=== PATIENT | female | born 1940 | race Caucasian/White ===

== ENCOUNTER 2023-09-06 11:36 | Emergency (ER) | payer OTHER ==
[2023-09-06 12:25] LABS: Absolute Basophils 0.1 K/uL (0-0.5); Absolute Eosinophils 0.1 K/uL (0-0.5); Absolute Lymphocytes (CBC) 1.8 K/uL (0.7-4.9); Absolute Monocytes 0.4 K/uL (0.1-1.3); Absolute Neutrophil 4.6 K/uL (1.8-8.0); Basophils % 0.9 % (0-1.3); Eosinophils % 0.8 % (0-4.4); Hematocrit 39.1 % (36.0-45.0); Hemoglobin 12.8 g/dL (12.0-15.0); Lymphocytes % 26.4 % (15.3-44.8); MCH 29.1 pg (27.0-35.0); MCHC 32.8 g/dL (32.0-36.0); MCV 88.7 fL (80-100); MPV 8.1 fL (7.6-11.3); Monocytes % 5.5 % (3.3-12.3); Neutrophils % 66.4 % (41.7-73.7); Platelets 192 thou/uL (152-406); RBC Red Blood Cell Count 4.41 M/uL (3.86-4.86); Red Cell Distribution Width 15.2 % (12.1-15.2)
[2023-09-06 12:44] LABS: Troponin High Sensitivity 6.5 pg/mL (<58.9)
--- NOTE | 2023-09-06 13:19 | RAD REPORT ---
EXAM DESCRIPTION: RAD - Chest Single View - 09/06/2023 12:47 pm CLINICAL HISTORY: CHEST PAIN Chest pain. COMPARISON: CHEST SINGLE VIEW dated 06/01/2013; CHEST PA AND LAT 2 VIEW dated 05/31/2013 FINDINGS: Portable technique limits examination quality. The lungs are mildly emphysematous but grossly clear. The heart is normal in size. No displaced fract ures. IMPRESSION: Prominent COPD.
--- NOTE | 2023-09-06 14:57 | ER ---
Nurse's Notes [facility] Name: Laurita Carter Age: 82 yrs Sex: Female : 1940 Arrival Date: 09/06/2023 Time: 11:36 Bed 5 Private MD: Diagnosis: Low back pain;Hyperinflated Lungs Presentation: 09/05 11:44 Chief complaint: Patient states: upper right sided back pain that has been going on for as6 months with it worsening over the last few days. Coronavirus screen: At this time, the client does not indicate any symptoms associated with coronavirus-19. Ebola Screen: No symptoms or risks identified at this time. Initial Sepsis Screen: Does the patient meet any 2 criteria? No. Patient's initial sepsis screen is negative. Does the patient have a suspected source of infection? No. Patient's initial sepsis screen is negative. Risk Assessment: Do you want to hurt yourself or someone else? Patient reports no desire to harm self or others. Onset of symptoms was September 06, 2023. 11:44 Method Of Arrival: Wheelchair as6 11:44 Acuity: ALMITA 3 as6 Triage Assessment: 11:46 General: Appears in no apparent distress. comfortable, Behavior is calm, cooperative. as6 Pain: Complains of pain in back. Historical: - Allergies: 11:46 No Known Allergies; as6 - Home Meds: 11:46 None [Active]; as6 - PMHx: 11:46 None; as6 - PSHx: 11:46 bladder; as6 - Immunization history:: Adult Immunizations up to date. - Infectious Disease History:: Denies. - Social history:: Smoking status: Patient denies any tobacco usage or history of. Screenin:55 [facility] ED Fall Risk Assessment (Adult) History of falling in the last 3 months, rs5 including since admission No falls in past 3 months (0 pts) Confusion or Disorientation No (0 pts) Intoxicated or Sedated No (0 pts) Impaired Gait No (0 pts) Mobility Assist Device Used No (0 pt) Altered Elimination No (0 pt) Score/Fall Risk Level 0 - 2 = Low Risk Oriented to surroundings, Maintained a safe environment. 11:55 Abuse screen: Denies threats or abuse. Nutritional screening: No deficits noted. rs5 Tuberculosis screening: No symptoms or risk factors identified. Assessment: 11:55 General: Appears in no apparent distress. uncomfortable, Behavior is calm, cooperative. rs5 11:55 Pain: Complains of pain in back Pain currently is 6 out of 10 on a pain scale. Quality rs5 of pain is described as aching, Is continuous. Neuro: Level of Consciousness is awake, alert, obeys commands, Oriented to person, place, time, situation. Neuro: Reports dizziness. Cardiovascular: Patient's skin is warm and dry. Rhythm is regular. Respiratory: Reports shortness of breath Airway is patent Respiratory effort is even, unlabored, Respiratory pattern is regular, symmetrical. GI: Abdomen is round non-distended, Abd is soft and non tender X 4 quads. : No signs and/or symptoms were reported regarding the genitourinary system. EENT: No signs and/or symptoms were reported regarding the EENT system. Derm: Skin is intact, Skin is pink, warm \T\ dry. Musculoskeletal: Range of motion: intact in all extremities. 13:05 Reassessment: Patient and/or family updated on plan of care and expected duration. Pain rs5 level reassessed. Patient is alert, oriented x 3, equal unlabored respirations, skin warm/dry/pink. Patient states feeling better. Patient states symptoms have improved. 13:05 Neuro: Denies dizziness. rs5 14:10 Reassessment: No changes from previously documented assessment. rs5 15:08 Reassessment: No changes from previously documented assessment. rs5 Vital Signs: 11:44 BP 171 / 73; Pulse 72; Resp 16 S; Temp 97.8; Pulse Ox 98% on R/A; Weight 52.16 kg (R); as6 Height 5 ft. 4 in. (R); Pain 7/10; 13:40 BP 162 / 71; Pulse 71; Resp 18; Pulse Ox 98% on R/A; rs5 15:08 BP 165 / 74; Pulse 76; Resp 18; Pulse Ox 99% on R/A; rs5 11:44 Body Mass Index 19.74 (52.16 kg, 162.56 cm) as6 11:44 Pain Scale: Adult as6 ED Course: 11:39 Patient arrived in ED. im 11:42 Jarred Colón MD is Attending Physician. ec2 11:46 Triage completed. as6 11:47 Arm band placed on. as6 11:55 Jessy Dunham, RN is Primary Nurse. db 11:55 Patient has correct armband on for positive identification. Placed in gown. Bed in low rs5 position. Call light in reach. Side rails up X2. 11:55 No provider procedures requiring assistance completed. rs5 12:21 Initial lab(s) drawn, by me, sent to lab. EKG done, by ED staff, reviewed by Jarred Colón MD. Inserted saline lock: 22 gauge in right wrist, using aseptic technique. Blood collected. 12:48 XRAY Chest (1 view) In Process Unspecified. EDMS 14:59 IV discontinued, intact, bleeding controlled, No redness/swelling at site. Pressure jg11 dressing applied. 15:10 IV discontinued, intact, bleeding controlled, No redness/swelling at site. Pressure rs5 dressing applied. Administered Medications: No medications were administered Medication: 15:08 VIS not applicable for this client. rs5 Outcome: 14:57 Discharge ordered by . ec2 15:09 Discharged to home ambulatory, with family, rs5 15:09 Condition: stable 15:09 Discharge instructions given to patient, family, Instructed on discharge instructions, follow up and referral plans. Demonstrated understanding of instructions, follow-up care, 15:10 Patient left the ED. rs5 Signatures: Dispatcher [employer] Kenneth Davidson RN RN as6 Jessy Dunham, RN RN db Gordo Crandall RN RN rs5 Jocelyn Schilling Edwin, MD MD ec2 Xiang Shi Corrections: (The following items were deleted from the chart) 15:08 13:05 Reassessment: Patient and/or family updated on plan of care and expected rs5 duration. Pain level reassessed. Patient is alert, oriented x 3, equal unlabored respirations, skin warm/dry/pink. Patient states feeling better. Patient states symptoms have improved. rs5
--- NOTE | 2023-09-06 14:58 | EDPHYS ---
Physician Documentation [facility] Name: Laurita Carter Age: 82 yrs Sex: Female : 1940 Arrival Date: 09/06/2023 Time: 11:36 Bed 5 Private MD: ED Physician Jarred Colón HPI: 09/05 11:57 This 82 yrs old Female presents to ER via Wheelchair with complaints of Back Pain, ec2 Shortness Of Breath, Dizziness. 11:57 Patient arrives today due to concern for back pain as well as lightheadedness. Patient ec2 reports that she was at her primary care doctor's office today and subsequently was told to come to the emergency department to have a cardiac evaluation. Patient reports no chest pain. Does report some lightheadedness, presyncope, no LOC. Patient reports no active pain at this time. Patient reports no history of ACS, previous history of hypertension which has been controlled with weight loss and she has not on medications for this.. Historical: - Allergies: 11:46 No Known Allergies; as6 - Home Meds: 11:46 None [Active]; as6 - PMHx: 11:46 None; as6 - PSHx: 11:46 bladder; as6 - Immunization history:: Adult Immunizations up to date. - Infectious Disease History:: Denies. - Social history:: Smoking status: Patient denies any tobacco usage or history of. ROS: 11:57 Constitutional: as per hpi ec2 Exam: 11:57 Constitutional: GEN: NAD Head: atraumatic Eyes: EOMI Ears: External ears are ec2 normal. CV: regular rate LUNGS: no respiratory distress ABD: non-distended SKIN: no evidence of rashes MSK: no evidence of trauma NEURO: moves all extremities equally Vital Signs: 11:44 BP 171 / 73; Pulse 72; Resp 16 S; Temp 97.8; Pulse Ox 98% on R/A; Weight 52.16 kg (R); as6 Height 5 ft. 4 in. (R); Pain 7/10; 13:40 BP 162 / 71; Pulse 71; Resp 18; Pulse Ox 98% on R/A; rs5 15:08 BP 165 / 74; Pulse 76; Resp 18; Pulse Ox 99% on R/A; rs5 11:44 Body Mass Index 19.74 (52.16 kg, 162.56 cm) as6 11:44 Pain Scale: Adult as6 MDM: 11:56 Patient medically screened. ec2 11:57 Data reviewed: vital signs. ED course: Patient arrives today for evaluation of ec2 lightheadedness as well as back pain. Emanation with well-appearing nontoxic dividual with reassuring vital signs. Will obtain cardiac evaluation. Evaluating for ACS, arrhythmia, electrolyte disturbances, renal dysfunction.. 12:14 ED course: EKG independently reviewed and interpreted by me, shows normal sinus rhythm, ec2 rate of 67, no acute ST segment elevations, intervals are nonconcerning.. 13:06 ED course: Metabolic profile reassuring. CBC is also reassuring, troponin within normal ec2 ranges. BNP within normal ranges. . 13:16 ED course: Chest x-ray independently reviewed and interpreted by me, shows no acute ec2 intrathoracic process. Does show hyperinflated lungs.. 13:37 ED course: On reassessment patient is well-appearing in no acute distress. Will obtain ec2 repeat EKG and troponin.. 14:23 ED course: Repeat EKG independently reviewed and interpreted by me, shows normal sinus ec2 rhythm, rate of 62, no acute ST segment elevations, intervals are nonconcerning, motion artifact appreciated, appears grossly similar to initial EKG. Pending repeat troponin.. 14:56 ED course: Repeat troponin is unremarkable. Will discharge home. Return precautions ec2 given.. 09/05 11:57 Order name: Basic Metabolic Panel; Complete Time: 13:05 ec2 09/05 11:57 Order name: CBC with Diff; Complete Time: 13:05 ec2 09/05 11:57 Order name: NT PRO-BNP; Complete Time: 13:05 ec2 09/05 11:57 Order name: Troponin HS; Complete Time: 13:05 ec2 09/05 13:54 Order name: Troponin High Sensitivity; Complete Time: 14:56 ec2 09/05 11:57 Order name: XRAY Chest (1 view); Complete Time: 13:28 ec2 09/05 11:57 Order name: EKG; Complete Time: 11:57 ec2 09/05 11:57 Order name: Cardiac monitoring; Complete Time: 12:37 ec2 09/05 11:57 Order name: EKG - Nurse/Tech; Complete Time: 12:37 ec2 09/05 11:57 Order name: IV Saline Lock; Complete Time: 12:37 ec2 09/05 11:57 Order name: Labs collected and sent; Complete Time: 12:37 ec2 09/05 11:57 Order name: O2 Per Protocol; Complete Time: 12:37 ec2 09/05 11:57 Order name: O2 Sat Monitoring; Complete Time: 12:37 ec2 09/05 13:54 Order name: EKG - Nurse/Tech; Complete Time: 15:01 ec2 09/05 13:54 Order name: Misc. Order: Repeat EKG/trop; Complete Time: 15:01 ec2 Administered Medications: No medications were administered Disposition Summary: 09/06/23 14:57 Discharge Ordered Notes: Location: Home ec2 Condition: Stable ec2 Diagnosis - Low back pain ec2 - Hyperinflated Lungs ec2 Followup: ec2 - With: Private Physician - When: - Reason: Re-evaluation by your physician Discharge Instructions: - Discharge Summary Sheet ec2 - Pleurisy, [id number] ec2 Forms: - Medication Reconciliation Form ec2 - Antibiotic Education ec2 - Prescription Opioid Use ec2 - Patient Portal Instructions ec2 - Leadership Thank You Letter ec2 Signatures: Dispatcher [employer] Kenneth Davidson RN RN as6 Jarred Colón MD MD ec2 Corrections: (The following items were deleted from the chart) 11:57 11:57 Chest Single View+RAD.RAD.BRZ ordered. CHARLETTE OVALLES
[2023-09-06 15:24] VITALS: BP 165/74; TEMP 97.8; O2SAT 99
--- NOTE | 2023-09-07 14:02 | EKG ---
Test Date: 2023-09-06 Test Time: 12:07:27 Chicken Picker: OFELIA MEASUREMENT RESULTS: Intervals: Rate: 67 WY: 148 QRSD: 84 QT: 392 QTc: 414 [place]: P: 78 W[place]: 148 QRS: 84 T: 81 INTERPRETIVE STATEMENTS: Normal sinus rhythm Septal infarct, age undetermined Abnormal ECG Compared to ECG 09/28/1997 17:18:00 Myocardial infarct finding now present Left ventricular hypertrophy no longer present ST (T wave) deviation no longer present Electronically Signed On 09-07-23 13:58:50 CDT by Bhupinder Coffey
--- NOTE | 2023-09-08 13:09 | EKG ---
Test Date: 2023-09-06 Test Time: 14:13:17 Assistant To The President: OFELIA MEASUREMENT RESULTS: Intervals: Rate: 62 [place]: 152 QRSD: 86 QT: 398 QTc: 403 [place]: P: 73 LA: 152 QRS: 83 T: 82 INTERPRETIVE STATEMENTS: Normal sinus rhythm ST abnormality, possible digitalis effect Abnormal ECG Compared to ECG 09/06/2023 12:07:27 ST (T wave) deviation now present Myocardial infarct finding no longer present Electronically Signed On 09-08-23 13:07:20 CDT by Bhupinder Coffey
== END 2023-09-06 15:10 | disposition home or self-care (01) ==
LOC: ER 11:36
DX: M54.50 Low back pain, unspecified (principal); J98.4 Other disorders of lung
CPT/HCPCS: 36415; 71045; 80048; 83880; 84484; 85025; 93005; 99284

== ENCOUNTER 2023-09-29 08:27 | Emergency (ER) | payer OTHER ==
--- NOTE | 2023-09-29 09:16 | RAD REPORT ---
EXAM DESCRIPTION: RAD - Knee Left 3 View - 09/29/2023 9:09 am CLINICAL HISTORY: fall;Pain COMPARISON: No comparisons FINDINGS: Lucency is seen in the patella likely representing nondisplaced fracture. The bones are de mineralized. Moderate suprapatellar joint effusion.
--- NOTE | 2023-09-29 09:40 | ER ---
Nurse's Notes [facility] Name: Laurita Carter Age: 82 yrs Sex: Female : 1940 Arrival Date: 09/29/2023 Time: 08:27 Bed 12 Private MD: Diagnosis: Fracture of [id number] Presentation: 09/28 08:43 Chief complaint: Patient states: tripped and fell on Wednesday, fell on both knees but the iw left is swollen. 08:44 Coronavirus screen: At this time, the client does not indicate any symptoms associated iw with coronavirus-19. Ebola Screen: Patient negative for fever greater than or equal to 101.5 degrees Fahrenheit, and additional compatible Ebola Virus Disease symptoms Patient denies exposure to infectious person. Patient denies travel to an Ebola-affected area in the 21 days before illness onset. No symptoms or risks identified at this time. Initial Sepsis Screen: Does the patient meet any 2 criteria? No. Patient's initial sepsis screen is negative. Does the patient have a suspected source of infection? No. Patient's initial sepsis screen is negative. Risk Assessment: Do you want to hurt yourself or someone else? Patient reports no desire to harm self or others. Onset of symptoms was September 27, 2023. 08:44 Method Of Arrival: Ambulatory iw 08:44 Acuity: ALMITA 4 iw Historical: - Allergies: 08:46 No Known Allergies; iw - Home Meds: 08:46 None [Active]; iw - PSHx: 08:45 Bladder; iw - Family history:: not pertinent. - Hospitalizations: : No recent hospitalization is reported. Vital Signs: 08:46 BP 134 / 69; Pulse 72; Resp 16; Temp 97.5; Pulse Ox 100% ; Pain 10/10; iw 08:46 Pain Scale: Adult iw ED Course: 08:34 Patient arrived in ED. mg5 08:38 Christ Lovelace MD is Attending Physician. rn 08:45 Triage completed. iw 08:46 Romi Noel, JOSAFAT is Primary Nurse. iw 09:11 XRAY Knee LEFT 3 view In Process Unspecified. EDMS 09:39 Gelacio Kim MD is Referral Physician. rn Administered Medications: No medications were administered Outcome: 09:39 Discharge ordered by . rn 09:50 Patient left the ED. iw Signatures: Dispatcher [employer] EDMS Romi Noel, Christ Galan RN, MD MD rn [place], [place] mg5 Corrections: (The following items were deleted from the chart) 08:46 08:46 Pulse 72bpm; Resp 16bpm; Pulse Ox 100%; Temp 97.5F; Pain 02/09, Adult; iw iw
--- NOTE | 2023-09-29 09:40 | EDPHYS ---
Physician Documentation [facility] Name: Laurita Carter Age: 82 yrs Sex: Female : 1940 Arrival Date: 09/29/2023 Time: 08:27 Bed 12 Private MD: ED Physician Christ Lovelace HPI: 09/28 09:37 This 82 yrs old Female presents to ER via Ambulatory with complaints of Fall Injury, rn Knee Pain. 09:37 Details of fall: The patient fell from an upright position, while standing. Onset: The rn symptoms/episode began/occurred 3 day(s) ago. Associated injuries: The patient sustained Left knee. Severity of symptoms: At their worst the symptoms were moderate, in the emergency department the symptoms have improved. The patient has not experienced similar symptoms in the past. Patient reports tripped, landed on her knees, left knee is still swollen and more painful despite ice and rest.. Historical: - Allergies: 08:46 No Known Allergies; iw - Home Meds: 08:46 None [Active]; iw - PSHx: 08:45 Bladder; iw - Family history:: not pertinent. - Hospitalizations: : No recent hospitalization is reported. ROS: 09:37 Constitutional: Negative for fever, chills, and weight loss, Neck: Negative for injury, rn pain, and swelling, Back: Negative for injury and pain, MS/Extremity: Positive for left knee pain and swelling after fall Exam: 09:37 Constitutional: This is a well developed, well nourished patient who is awake, alert, rn and in no acute distress. MS/ Extremity: Pulses equal, no cyanosis. Neurovascular intact. Mild left knee effusion with mild tenderness to left patella. No open wounds. No crepitus. No signs of infection. Able to flex and extend knee actively and ambulate without assistance. Vital Signs: 08:46 BP 134 / 69; Pulse 72; Resp 16; Temp 97.5; Pulse Ox 100% ; Pain 10/10; iw 08:46 Pain Scale: Adult iw MDM: 08:38 Patient medically screened. rn 09:37 Differential diagnosis: contusion, fracture, sprain, strain. Data reviewed: vital rn signs, nurses notes, radiologic studies, plain films, and as a result, I will discharge patient. Counseling: I had a detailed discussion with the patient and/or guardian regarding the historical points, exam findings, and any diagnostic results supporting the discharge/admit diagnosis, radiology results, the need for outpatient follow up, to return to the emergency department if symptoms worsen or persist or if there are any questions or concerns that arise at home. Special discussion: I discussed with the patient/guardian in detail that at this point there is no indication for admission to the hospital. It is understood, however, that if the symptoms persist or worsen the patient needs to return immediately for re-evaluation. Based on the history and exam findings, there is no indication for further emergent testing or inpatient evaluation. I discussed with the patient/guardian the need to see the orthopedic surgeon for further evaluation of the symptoms. ED course: X-ray knee shows lucency possible nondisplaced fracture of the left patella. Will place in knee immobilizer. Patient has walker that she is using but able to ambulate without assistance as well. Will follow-up with orthopedics as outpatient. I have personally reviewed all of the results, including but not limited to imaging deemed necessary to safely discharge this patient at this time. All results given to and printed out for patient. I personally went over all the results with the patient and answered all questions. Patient will follow-up with PCP and or specialist as discussed. Return precautions given and understood.. 09/28 08:46 Order name: XRAY Knee LEFT 3 view; Complete Time: 09:26 rn 09/28 09:30 Order name: Knee Immobilizer; Complete Time: 09:37 rn Administered Medications: No medications were administered Disposition Summary: 09/29/23 09:39 Discharge Ordered Notes: Location: Home rn Problem: new rn Symptoms: have improved rn Condition: Stable rn Diagnosis - Fracture of patella - non-displaced rn Followup: rn - With: Gelacio Kim MD - When: 5 - 6 days - Reason: Recheck today's complaints, Re-evaluation by your physician Discharge Instructions: - Discharge Summary Sheet rn - How to Use a Knee Immobilizer rn - Patellar Fracture, Adult rn Forms: - Medication Reconciliation Form rn - Antibiotic gallery intern - Prescription Opioid Use rn - Patient Portal Instructions rn - Leadership Thank You Letter rn Signatures: Dispatcher [employer] Romi Yusuf RN RN iw Nieto, Roman, MD MD rn
[2023-09-29 09:57] VITALS: BP 134/69; TEMP 97.5; O2SAT 100
== END 2023-09-29 09:50 | disposition home or self-care (01) ==
LOC: ER 08:27
DX: S82.002A Unspecified fracture of left patella, initial encounter for closed fracture (principal); W18.00XA Striking against unspecified object with subsequent fall, initial encounter
CPT/HCPCS: 99281

== ENCOUNTER 2024-02-21 19:26 | Emergency (ER) | payer OTHER ==
[2024-02-21 20:31] LABS: Specific Gravity 1.011 (1.005-1.030); Sqamous Epithelial None Seen /HPF (None Seen); Urine Bacteria None Seen /HPF (<20); Urine Bilirubin NEGATIVE (Negative); Urine Blood 3+ (OVER) (Negative); Urine Clarity Extremely Turbid (Clear); Urine Color Brown (Yellow); Urine Culture Reflex Order NOT NEEDED; Urine Glucose NEGATIVE (Negative); Urine Ketones NEGATIVE (Negative); Urine Microscopic Reflex YN ORDER UMIC; Urine Nitrite NEGATIVE (Negative); Urine Protein 1+ (Negative); Urine RBC <5 /HPF (None Seen); Urine Urobilinogen Normal (Normal); Urine WBC <5 /HPF (<5)
--- NOTE | 2024-02-21 21:17 | RAD REPORT ---
EXAMINATION: Stone Protocol CLINICAL INDICATION: Abdominal pain. Hematuria TECHNIQUE: CT abdomen and pelvis was performed, without IV contrast, as per department protocol. Oral contrast not given. Axial, sagittal and coronal reconstructions were obtained. One or more of the following dose reduction techniques were used: Automated exposure control, adjustment of the mA and k V according to the patient size, and iterative reconstruction. Unless otherwise specified, incidental findings do not require dedicated imaging follow-up. COMPARISON: No prior exam. FINDINGS: The lack of intravenous and oral contrast limits the sensitivity of this exam for evaluation of solid visceral organs, vascular structures, and bowel Mild tree in bud opacities left lower lobe and lingula. Several small left renal calculi. No hydronephrosis. An extrarenal pelvis present. Ureteral calculus not seen The right kidney is mildly diminished in size. A renal calculus is not seen. Marked dilatation of an extrarenal pelvis is present. A ureteral calculus is not seen. Bladder is distended. A cystocele present. Liver, spleen, pancreas and adrenals grossly normal No evidence of diverticulitis. Moderate amount of stool within the colon. Hysterectomy. No adnexal mass. Cholelithiasis. Gallbladder wall thickening not seen. Spondylosis lumbar spine IMPRESSION: Multiple small nonobstructing left renal calculi. 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 Bladder distention Cholelithiasis
[2024-02-21 21:45] LABS: Absolute Basophils 0.1 K/uL (0-0.5); Absolute Eosinophils 0.1 K/uL (0-0.5); Absolute Monocytes 0.6 K/uL (0.1-1.3); Absolute Neutrophil 5.1 K/uL (1.8-8.0); Eosinophils % 1.7 % (0-4.4); Hematocrit 36.1 % (36.0-45.0); Hemoglobin 12.2 g/dL (12.0-15.0); Lymphocytes % 24.8 % (15.3-44.8); MCH 30.2 pg (27.0-35.0); MCHC 33.8 g/dL (32.0-36.0); MCV 89.6 fL (80-100); Monocytes % 7.9 % (3.3-12.3); Neutrophils % 64.6 % (41.7-73.7); Platelets 173 thou/uL (152-406); RBC Red Blood Cell Count 4.03 M/uL (3.86-4.86); Red Cell Distribution Width 14.7 % (12.1-15.2)
[2024-02-21 22:07] LABS: Albumin 3.4 g/dL (3.4-5.0); Albumin/Globulin Ratio 0.9 (1.1-1.8); Anion Gap 8.3 mEq/L (5.0-15.0); Bilirubin Total 0.3 mg/dL (0.2-1.0); Globulin 3.9 g/dL (2.3-3.5); Protein, Total 7.3 g/dL (6.4-8.2)
[2024-02-21 22:13] LABS: Potassium 4.3 mEq/L (3.5-5.1)
--- NOTE | 2024-02-21 22:30 | ER ---
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 Pt also reports burning cm10 with urination and flank pain. Coronavirus screen: Client denies travel out of the [place] in the last 14 days. Ebola Screen: Patient denies travel to an Ebola-affected area in the 21 days before illness onset. No symptoms or risks identified at this time. Initial Sepsis Screen: Does the patient meet any 2 criteria? No. Patient's initial sepsis screen is negative. Does the patient have a suspected source of infection? No. Patient's initial sepsis screen is negative. Risk Assessment: Do you want to hurt yourself or someone else? Patient reports no desire to harm self or others. Onset of symptoms was February 21, 2024. 20:06 Method Of Arrival: Ambulatory cm10 20:06 Acuity: ALMITA 3 cm10 Triage Assessment: 20:08 General: Appears in no apparent distress. comfortable, Behavior is calm, cooperative, cm10 appropriate for age. Neuro: No deficits noted. Level of Consciousness is awake, alert, obeys commands, Oriented to person, place, time, situation, Appropriate for age. Historical: - Allergies: 20:07 No Known Allergies; cm10 - Home Meds: 20:07 None [Active]; cm10 - PMHx: 20:07 None; cm10 - PSHx: 20:07 Bladder; cm10 - Immunization history:: Adult Immunizations up to date. - Infectious Disease History:: Denies. - Social history:: Smoking status: Patient denies any tobacco usage or history of. Screenin:28 [facility] ED Fall Risk Assessment (Adult) History of falling in the last 3 months, rg5 including since admission No falls in past 3 months (0 pts) Confusion or Disorientation No (0 pts) Intoxicated or Sedated No (0 pts) Impaired Gait No (0 pts) Mobility Assist Device Used No (0 pt) Altered Elimination No (0 pt) Score/Fall Risk Level 0 - 2 = Low Risk Oriented to surroundings, Maintained a safe environment, Hourly rounding (assess needs \T\ fall precautionary measures) done. Abuse screen: Denies threats or abuse. Nutritional screening: No deficits noted. Tuberculosis screening: No symptoms or risk factors identified. Assessment: 20:27 General: Appears in no apparent distress. comfortable, Behavior is calm, cooperative, rg5 appropriate for age. Pain: Denies pain. Neuro: Level of Consciousness is awake, alert, obeys commands, Oriented to person, place, time, situation. Cardiovascular: Patient's skin is warm and dry. Respiratory: Airway is patent Trachea midline Respiratory effort is even, unlabored, Respiratory pattern is regular. GI: Abdomen is flat, Bowel sounds present X 4 quads. Abd is soft and non tender. : Reports burning with urination, vaginal bleeding that is. EENT: No deficits noted. Derm: Skin is intact, Skin is dry, Skin is normal. Musculoskeletal: Circulation, motion, and sensation intact. Range of motion: intact in all extremities. 21:40 Reassessment: No changes from previously documented assessment. Patient and/or family rg5 updated on plan of care and expected duration. Pain level reassessed. Patient is alert, oriented x 3, equal unlabored respirations, skin warm/dry/pink. 22:30 Reassessment: Patient and/or family updated on plan of care and expected duration. Pain rg5 level reassessed. Patient is alert, oriented x 3, equal unlabored respirations, skin warm/dry/pink. Vital Signs: 20:06 BP 176 / 74; Pulse 80; Resp 16; Temp 97.6(IR); Pulse Ox 95% on R/A; Weight 51.26 kg; cm10 Height 5 ft. 4 in. ; Pain 5/10; 20:22 BP 173 / 81; Pulse 78; Resp 17; Pulse Ox 98% ; rg5 21:39 BP 184 / 88; Pulse 81; Resp 17; Pulse Ox 99% on R/A; Pain 0/10; rg5 22:30 BP 154 / 80; Pulse 80; Resp 17; Temp 98; Pulse Ox 99% on R/A; Pain 0/10; rg5 20:06 Body Mass Index 19.40 (51.26 kg, 162.56 cm) cm10 20:06 Pain Scale: Adult cm10 21:39 Pain Scale: Adult rg5 22:30 Pain Scale: Adult rg5 ED Course: 19:29 Patient arrived in ED. jj6 20:00 Ann-Marie Dixon FNP-C is [facility]. kb 20:00 Gerry García MD is Attending Physician. kb 20:07 Triage completed. cm10 20:08 Arm band placed on left wrist. Patient placed in an exam room, on a stretcher. cm10 20:09 Mayo Epps, RN is Primary Nurse. rg5 20:28 Patient has correct armband on for positive identification. Bed in low position. Call rg5 light in reach. Adult w/ patient. 20:28 No provider procedures requiring assistance completed. rg5 20:53 CT Stone Protocol In Process Unspecified. EDMS 22:30 New Gonzales MD is Referral Physician. kb 22:39 IV discontinued, bleeding controlled, No redness/swelling at site. Pressure dressing rg5 applied. 22:40 Provided Education on: POST ER CARE. rg5 Administered Medications: No medications were administered Medication: 21:40 VIS not applicable for this client. rg5 Outcome: 22:30 Discharge ordered by . kb 22:39 Discharged to home ambulatory, rg5 22:39 Condition: stable 22:39 Instructed on discharge instructions, follow up and referral plans. Demonstrated understanding of instructions, 22:40 Patient left the ED. rg5 Signatures: Dispatcher [employer] EDHI Ann-Marie Dixon FNP-C FNP-Ayah Salamanca [email or web address] Sonja Mejía, RN RN cm10 Mayo Epps, RN RN rg5
--- NOTE | 2024-02-21 22:30 | EDPHYS ---
Physician Documentation [facility] Name: Laurita Carter Age: 83 yrs Sex: Female : 1940 Arrival Date: 02/21/2024 Time: 19:26 Bed 15 Private MD: ED Physician Gerry García HPI: 02/20 23:22 This 83 yrs old Female presents to ER via Ambulatory with complaints of HEMATURIA. kb 23:22 Pt is an 83 year old female who presents for dysuria that started this morning and kb hematuria that she noticed this afternoon. Denies fever, abd pain, flank pain. . Historical: - Allergies: 20:07 No Known Allergies; cm10 - Home Meds: 20:07 None [Active]; cm10 - PMHx: 20:07 None; cm10 - PSHx: 20:07 Bladder; cm10 - Immunization history:: Adult Immunizations up to date. - Infectious Disease History:: Denies. - Social history:: Smoking status: Patient denies any tobacco usage or history of. ROS: 23:21 Constitutional: As per HPI kb Exam: 23:21 Constitutional: This is a well developed, well nourished patient who is awake, alert, kb and in no acute distress. Head/Face: Normocephalic, atraumatic. ENT: Moist Mucous membranes Cardiovascular: Regular rate Respiratory: Respirations even and unlabored. No increased work of breathing. Talking in full sentences Abdomen/GI: Soft, non-tender. No distention Skin: Warm, dry with normal turgor. Normal color. MS/ Extremity: Pulses equal, no cyanosis. Neurovascular intact. Full, normal range of motion. Neuro: Awake and alert, GCS 15, oriented to person, place, time, and situation. Vital Signs: 20:06 BP 176 / 74; Pulse 80; Resp 16; Temp 97.6(IR); Pulse Ox 95% on R/A; Weight 51.26 kg; cm10 Height 5 ft. 4 in. ; Pain 5/10; 20:22 BP 173 / 81; Pulse 78; Resp 17; Pulse Ox 98% ; rg5 21:39 BP 184 / 88; Pulse 81; Resp 17; Pulse Ox 99% on R/A; Pain 0/10; rg5 22:30 BP 154 / 80; Pulse 80; Resp 17; Temp 98; Pulse Ox 99% on R/A; Pain 0/10; rg5 20:06 Body Mass Index 19.40 (51.26 kg, 162.56 cm) cm10 20:06 Pain Scale: Adult cm10 21:39 Pain Scale: Adult rg5 22:30 Pain Scale: Adult rg5 MDM: 20:00 Medical Screening Exam initiated kb 23:21 Differential diagnosis: UTI, pyelonephritis, kidney stone. Data reviewed: vital signs, kb nurses notes. Historians other than the Patient: Daughter/Son: daughter. Counseling: I had a detailed discussion with the patient and/or guardian regarding the historical points, exam findings, and any diagnostic results supporting the discharge/admit diagnosis, lab results, radiology results, the need for outpatient follow up, a urologist, to return to the emergency department if symptoms worsen or persist or if there are any questions or concerns that arise at home. ED course: Discussed diagnostic results with pt and daughter. Recommended carias and follow up with urology. Pt and daughter refuse carias. States they will just follow up with urology.. 02/20 20:13 Order name: Urinalysis w/ reflexes; Complete Time: 20:32 kb 02/20 21:19 Order name: CBC with Diff; Complete Time: 21:57 kb 02/20 21:19 Order name: CMP; Complete Time: 22:18 kb 02/20 21:19 Order name: Lipase; Complete Time: 22:18 kb 02/20 20:13 Order name: CT Stone Protocol; Complete Time: 21:18 kb 02/20 21:19 Order name: IV Saline Lock; Complete Time: 21:35 kb 02/20 21:19 Order name: Labs collected and sent; Complete Time: 21:35 kb Administered Medications: No medications were administered Disposition Summary: 02/21/24 22:30 Discharge Ordered Notes: Location: Home kb Condition: Stable kb Diagnosis - 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 kb - Bladder distention kb Followup: kb - With: New Gonzales MD - When: 2 - 3 days - Reason: Recheck today's complaints Followup: kb - With: Emergency Department - When: 2 - 3 days - Reason: Recheck today's complaints, Continuance of care, Re-evaluation by your physician Discharge Instructions: - Discharge Summary Sheet kb - Urethral Stricture kb Forms: - Medication Reconciliation Form kb - Antibiotic Education kb - Prescription Opioid Use kb - Patient Portal Instructions kb - Leadership Thank You Letter kb Signatures: Dispatcher [employer] EDAnn-Marie Bland FNP-Sanjana SINGLETON-Sonja Jackson, RN RN cm10 Corrections: (The following items were deleted from the chart) 20:14 20:14 Urinalysis+U.LAB.BRZ ordered. EDMS EDMS 20:14 20:14 Stone Protocol+CT.RAD.BRZ ordered. EDMS EDMS 21:19 21:19 CBC+H.LAB.BRZ ordered. EDMS EDMS 21:19 21:19 COMPREHENSIVE METABOLIC PANEL+C.LAB.BRZ ordered. EDMS EDMS 21:19 21:19 LIPASE+C.LAB.BRZ ordered. EDMS EDMS 22:28 22:23 Carias ordered. kb kb
[2024-02-22 05:05] VITALS: O2SAT 99
[2024-02-22 05:07] VITALS: BP 154/80; TEMP 98
== END 2024-02-21 22:40 | disposition home or self-care (01) ==
LOC: ER 19:26
DX: N13.5 Crossing vessel and stricture of ureter without hydronephrosis (principal); N32.89 Other specified disorders of bladder
CPT/HCPCS: 36415; 74176; 76377; 80053; 81001; 83690; 85025; 99283

== ENCOUNTER 2024-06-23 08:12 | Inpatient (IN) | payer OTHER ==
[2024-06-23] MEDS ORDERED: NA CHLORIDE 0.9% 1,000 ML ONE (08:32)
[2024-06-23] MEDS ORDERED: ONDANSETRON 4 MG/2 ML VIAL ONE ×2 (09:00→12:13)
[2024-06-23] MEDS ORDERED: FENTANYL CITR 100 MCG/2 ML ONE ×2 (09:00→11:31)
[2024-06-23 09:06] LABS: Absolute Basophils 0.1 K/uL (0-0.5); Absolute Eosinophils 0.1 K/uL (0-0.5); Absolute Lymphocytes (CBC) 1.4 K/uL (0.7-4.9); Absolute Monocytes 0.4 K/uL (0.1-1.3); Absolute Neutrophil 5.2 K/uL (1.8-8.0); Basophils % 0.9 % (0-1.3); Eosinophils % 0.8 % (0-4.4); Hematocrit 39.4 % (36.0-45.0); Hemoglobin 12.9 g/dL (12.0-15.0); Lymphocytes % 19.6 % (15.3-44.8); MCH 29.3 pg (27.0-35.0); MCHC 32.6 g/dL (32.0-36.0); MCV 89.7 fL (80-100); MPV 8.2 fL (7.6-11.3); Monocytes % 5.3 % (3.3-12.3); Neutrophils % 73.4 % (41.7-73.7); Platelets 173 thou/uL (152-406); RBC Red Blood Cell Count 4.39 M/uL (3.86-4.86); Red Cell Distribution Width 14.6 % (12.1-15.2)
[2024-06-23 09:11] LABS: Protime INR 1.05
--- NOTE | 2024-06-23 09:22 | RAD REPORT ---
EXAMINATION: ONE VIEW CHEST XR CLINICAL INDICATION: COUGH TECHNIQUE: Frontal chest projection is submitted. Examination is limited by patient positioning and t echnique. COMPARISON: 09/06/2023 FINDINGS: Emphysematous changes are present. Vague hazy right upper lobe lung opacity suspicious for superimpos ed infiltrate/pneumonia. The heart is upper limit of normal in size. No displaced fractures identified.
--- NOTE | 2024-06-23 09:23 | RAD REPORT ---
EXAMINATION: XR PELVIS CLINICAL INDICATION: PAIN TECHNIQUE: AP Pelvis examination was obtained. COMPARISON: No prior exam. FINDINGS: Subcapital fracture of the proximal right femur seen with varus angulation. No dislocation or additional fracture.
--- NOTE | 2024-06-23 09:24 | RAD REPORT ---
EXAMINATION: XR RIGHT HIP CLINICAL INDICATION: . PAIN RIGHT TECHNIQUE: Multiple views of the right hip were obtained. COMPARISON: No prior exam. FINDINGS: Subcapital fracture of the proximal right femur seen with varus angulation. No dislocation seen.
--- NOTE | 2024-06-23 09:30 | RAD REPORT ---
EXAM: CT brain without contrast HISTORY: DIZZINESS COMPARISON: None TECHNIQUE: Multiple contiguous axial images were obtained and a CT of the brain without contrast. Sag ittal and coronal reformats were performed. One or more of the following dose reduction techniques were used: Automated exposure control, adjust ment of the mA and/or kV according to patient size, and/or iterative reconstruction. FINDINGS: No evidence of hydrocephalus, intracranial hemorrhage, or extra-axial fluid collection. Mild brain atrophy with mild periventricular and deep white matter chronic microvascular ischemic ch anges present. No evidence of midline shift or areas of brain edema. The calvarium is intact. The visualized paranasal sinuses and mastoid air cells are essentially clear . IMPRESSION: No evidence of acute intracranial abnormality. EXAM: CT of the cervical spine without contrast HISTORY: Neck pain, injury DIZZINESS TECHNIQUE: Multiple contiguous axial images were obtained in a CT of the cervical spine without contr ast. Sagittal and coronal reformats were performed. FINDINGS: Mild diffuse pattern of spondylosis is present with disc thinning, posterior osteophyte and mild wedging of vertebral bodies. No evidence of acute fracture or subluxation.. No prevertebral soft tissue swelling is seen. The posterior facets are well aligned. Normal alignment of the skull base with the cervical spine is seen. Chronic opacities in both upper lobes. IMPRESSION: No evidence of acute osseous abnormality of the cervical spine. Moderate cervical degenerative changes.
--- NOTE | 2024-06-23 09:52 | EDPHYS ---
Physician Documentation [facility] Name: Laurita Cooper Age: 83 yrs Sex: Female : 1940 Arrival Date: 06/23/2024 Time: 08:12 Bed 18 Private MD: ED Physician Stefan Ly HPI: 06/23 08:39 This 83 yrs old Female presents to ER via Ambulatory with complaints of Hip rogers Pain. 08:39 The patient or guardian reports decreased range of motion, pain. that occurred at home, rogers sustained from a fall, There is no obvious deformity, The patient is not able to ambulate. Patient is not able to bear weight. The complaints affect the right hip and right upper thigh. Modifying factors: The symptoms are alleviated by nothing, the symptoms are aggravated by nothing. Severity of symptoms: At their worst the symptoms were moderate, in the emergency department the symptoms are unchanged. Historical: - Allergies: 08:26 No Known Allergies; ss - Home Meds: 08:26 None [Active]; ss - PMHx: 08:26 None; ss - PSHx: 08:26 Bladder; ss - Immunization history:: Client reports having NOT received the Covid vaccine. - Infectious Disease History:: Denies. - Social history:: Smoking status: Patient denies any tobacco usage or history of. ROS: 08:41 Constitutional: Negative for fever, chills, and weight loss, Eyes: Negative for injury, rogers pain, redness, and discharge, ENT: Negative for injury, pain, and discharge, Neck: Negative for injury, pain, and swelling, Cardiovascular: Negative for chest pain, palpitations, and edema, Respiratory: Negative for shortness of breath, cough, wheezing, and pleuritic chest pain, Abdomen/GI: Negative for abdominal pain, nausea, vomiting, diarrhea, and constipation, Back: Negative for injury and pain, : Negative for injury, bleeding, discharge, and swelling, Skin: Negative for injury, rash, and discoloration, Psych: Negative for depression, anxiety, suicide ideation, homicidal ideation, and hallucinations, Allergy/Immunology: Negative for hives, rash, and allergies, Endocrine: Negative for neck swelling, polydipsia, polyuria, polyphagia, and marked weight changes, Hematologic/Lymphatic: Negative for swollen nodes, abnormal bleeding, and unusual bruising, 08:41 MS/extremity: Positive for decreased range of motion, laceration, of the right leg, Exam: 08:41 Constitutional: This is a well developed, well nourished patient who is awake, alert, rogers and in no acute distress. Head/Face: Normocephalic, atraumatic. Eyes: Pupils equal round and reactive to light, extra-ocular motions intact. Lids and lashes normal. Conjunctiva and sclera are non-icteric and not injected. Cornea within normal limits. Periorbital areas with no swelling, redness, or edema. ENT: Nares patent. No nasal discharge, no septal abnormalities noted. Tympanic membranes are normal and external auditory canals are clear. Oropharynx with no redness, swelling, or masses, exudates, or evidence of obstruction, uvula midline. Mucous membranes moist. Neck: Trachea midline, no thyromegaly or masses palpated, and no cervical lymphadenopathy. Supple, full range of motion without nuchal rigidity, or vertebral point tenderness. No Meningismus. Chest/axilla: Normal chest wall appearance and motion. Nontender with no deformity. No lesions are appreciated. Cardiovascular: Regular rate and rhythm with a normal S1 and S2. No gallops, murmurs, or rubs. Normal PMI, no JVD. No pulse deficits. Respiratory: Lungs have equal breath sounds bilaterally, clear to auscultation and percussion. No rales, rhonchi or wheezes noted. No increased work of breathing, no retractions or nasal flaring. Abdomen/GI: Soft, non-tender, with normal bowel sounds. No distension or tympany. No guarding or rebound. No evidence of tenderness throughout. Back: No spinal tenderness. No costovertebral tenderness. Full range of motion. Female : Normal external genitalia. Skin: Warm, dry with normal turgor. Normal color with no rashes, no lesions, and no evidence of cellulitis. Neuro: Awake and alert, GCS 15, oriented to person, place, time, and situation. Cranial nerves II-XII grossly intact. Motor strength 5/5 in all extremities. Sensory grossly intact. Cerebellar exam normal. Normal gait. Psych: Awake, alert, with orientation to person, place and time. Behavior, mood, and affect are within normal limits. 08:41 Musculoskeletal/extremity: ROM: limited active range of motion due to pain, limited passive range of motion due to pain, Pulses: are normal with no appreciated deficits, Sensation intact. Compartment Syndrome exam of affected extremity: is normal. 08:41 Neuro: Orientation: is normal, appropriate for stated age, no acute changes, Mentation: is normal, appropriate for stated age, no acute changes, Memory: is normal, appropriate for stated age, no acute changes, Cranial nerves: grossly normal, is grossly normal based on the patient's age, no acute changes, Cerebellar function: is grossly normal, is grossly normal based on the patient's age, no acute changes, Gait: not tested. Deep tendon reflexes are 2+ (normal) in the bilateral brachioradialis, bicep, tricep and patellar and Achilles tendons, seizure activity, is not displayed by the patient, 09:39 ECG was reviewed by the Attending Physician. [facility] Vital Signs: 08:23 BP 200 / 92; Pulse 60; Resp 16; Temp 97.5; Pulse Ox 97% ; Weight 49.9 kg; Height 5 ft. ss 3 in. ; Pain 5/10; 10:00 BP 191 / 92; Pulse 77; Resp 18; Pulse Ox 97% ; me1 11:00 BP 183 / 89; Pulse 81; Resp 17; Pulse Ox 98% ; me1 12:00 BP 194 / 92; Pulse 83; Resp 16; Pulse Ox 98% ; me1 13:00 BP 117 / 91; Pulse 82; Resp 16; Temp 98.2; Pulse Ox 95% on R/A; me1 14:00 BP 169 / 91; Pulse 91; Resp 16; Pulse Ox 94% ; me1 08:23 Body Mass Index 19.49 (49.90 kg, 160.02 cm) 08:23 Pain Scale: Adult ss MDM: 08:27 Medical Screening Exam initiated [facility] 08:42 Differential diagnosis: hip fracture, intertrochanteric fracture, femoral neck rogers fracture, femoral shaft fracture, bursitis, arthritis, strain. Differential diagnosis: cardiac arrhythmia, CVA, generalized weakness, GI bleed, hypovolemia, idiopathic dizziness, near-syncope, , sepsis, TIA, vertigo. Data reviewed: vital signs, nurses notes, EMS record, lab test result(s), EKG, radiologic studies, CT scan, plain films. Consideration of Admission/Observation Patient was admitted/placed on observation. Escalation of care including admission/observation considered. I considered the following discharge prescriptions or medication management in the emergency department Medications were administered in the Emergency Department. See MAR. Independent interpretation of the following test(s) in the Emergency Department EKG: See my EKG interpretation above. Test considered but Not performed: MRI: NO MRI BRAIN. Historians other than the Patient: EMS: EMS WELL IN FORMED. Care significantly affected by the following chronic conditions: Hypertension. Counseling: I had a detailed discussion with the patient and/or guardian regarding the historical points, exam findings, and any diagnostic results supporting the discharge/admit diagnosis, the presence of at least one elevated blood pressure reading (>120/80) during this emergency department visit, lab results, radiology results, the need for further work-up and treatment in the hospital. 06/23 08:28 Order name: Basic Metabolic Panel; Complete Time: 11:56 [facility] 06/23 08:28 Order name: CBC with Diff; Complete Time: 09:49 [facility] 06/23 08:28 Order name: LFT's; Complete Time: 11:56 [facility] 06/23 08:28 Order name: Magnesium; Complete Time: 11:56 [facility] 06/23 08:28 Order name: NT PRO-BNP; Complete Time: 11:56 [facility] 06/23 08:28 Order name: PT-INR; Complete Time: 09:49 [facility] 06/23 08:28 Order name: Troponin HS; Complete Time: 11:56 [facility] 06/23 13:00 Order name: Protime (+INR) [facility] 06/23 13:00 Order name: Comprehensive Metabolic Panel [facility] 06/23 13:00 Order name: Comprehensive Metabolic Panel [facility] 06/23 13:00 Order name: Troponin High Sensitivity [facility] 06/23 13:00 Order name: Troponin High Sensitivity [facility] 06/23 08:28 Order name: XRAY Chest (1 view); Complete Time: 09:49 [facility] 06/23 08:28 Order name: Pelvis XRAY; Complete Time: 09:49 [facility] 06/23 08:28 Order name: Hip Right 2 View XRAY; Complete Time: 09:49 [facility] 06/23 08:39 Order name: CT Head C Spine; Complete Time: 09:49 [facility] 06/23 09:18 Order name: Femur Right Wo Con; Complete Time: 11:56 [facility] 06/23 08:28 Order name: Cardiac monitoring; Complete Time: 09: [facility] 06/23 08:28 Order name: EKG - Nurse/Tech; Complete Time: 09: [facility] 06/23 08:28 Order name: IV Saline Lock; Complete Time: : [facility] 06/23 08:28 Order name: Labs collected and sent; Complete Time: 09: [facility] 06/23 08:28 Order name: O2 Per Protocol; Complete Time: : [facility] 06/23 08:28 Order name: O2 Sat Monitoring; Complete Time: : [facility] 06/23 09:10 Order name: Labs - recollect needed: recollect green top please; Complete Time: 09:50 em1 EC:39 Rate is 73 beats/min. Rhythm is regular. QRS [place] is Normal. [place] interval is normal. QRS rogers interval is normal. QT interval is normal. No Q waves. T waves are Normal. No ST changes noted. Clinical impression: NSR w/ Non-specific ST/T Changes and No evidence of ischemia. Interpreted by me. Reviewed by me. Administered Medications: 08:50 Drug: NS 0.9% IV 500 ml 500 ml IV at 1 bolus once; to be given as a bolus over 30 db minutes Volume: 500 ml; Route: IV; Rate: 1 bolus; Site: left forearm; 13:01 Follow up: Response: No adverse reaction; IV Status: Completed infusion; IV Intake: me1 500ml 08:50 Drug: NS 0.9% IV 500 ml 500 ml IV at 125 ml/hr once Volume: 500 ml; Route: IV; Rate: db 125 ml/hr; Site: left forearm; 14:14 Follow up: Response: No adverse reaction; IV Status: Completed infusion; IV Intake: me1 500ml 09:05 Drug: fentaNYL (PF) IVP 25 mcg IVP once Route: IVP; Site: left forearm; db 13:00 Follow up: Response: No adverse reaction; Pain is decreased me1 09:05 Drug: Ondansetron IVP 4 mg IVP once; over 2 minutes Route: IVP; Site: left forearm; db 13:00 Follow up: Response: No adverse reaction; Nausea is decreased me1 09:40 Drug: fentaNYL (PF) IVP 25 mcg IVP once Route: IVP; Site: left forearm; db 13:01 Follow up: Response: No adverse reaction; Pain is decreased me1 11:40 Drug: fentaNYL (PF) IVP 25 mcg IVP once Route: IVP; Site: left antecubital; hb 13:00 Follow up: Response: No adverse reaction; Pain is unchanged, physician notified me1 12:06 Drug: HYDROmorphone IVP 0.5 mg IVP once Route: IVP; Site: left forearm; hb 13:28 Follow up: Response: No adverse reaction; Pain is decreased me1 12:18 Drug: Ondansetron IVP 4 mg IVP once; over 2 minutes Route: IVP; Site: left forearm; hb 13:00 Follow up: Response: No adverse reaction; Nausea is decreased me1 13:02 Drug: HYDROmorphone IVP 0.5 mg IVP once Route: IVP; Site: left forearm; me1 13:28 Follow up: Response: No adverse reaction; Pain is decreased me1 Disposition Summary: 06/23/24 09:51 Hospitalization Ordered Notes: Hospitalization Status: Inpatient Admission rogers Provider: Luis Armando Granger cha Location: Telemetry/MedSurg (Inpatient) rogers Condition: Stable rogers Problem: new rogers Symptoms: have improved rogers Bed/Room Type: Standard rogers Room Assignment: 404(06/23/24 13:06) ss Diagnosis - Dizziness and giddiness rogers - Displaced fracture of base of neck of left femur rogers - Fall on same level, unspecified rogers Forms: - Medication Reconciliation Form rogers - SBAR form rogers - Leadership Thank You Letter rogers Signatures: Dispatcher [employer] EDIA Stefan Ly MD MD cha Martinez, Eric em1 Angelica Hoffmann RN RN Giuliana Ladd RN RN Jessy Dunham, RN RN Abby Castaneda RN RN me1 Corrections: (The following items were deleted from the chart) 08:29 08:29 Chest Single View+RAD.RAD.BRZ ordered. EDMS EDMS 08:29 08:29 Pelvis+RAD.RAD.BRZ ordered. EDMS EDMS 08:29 08:29 Hip Right 2 View+RAD.RAD.BRZ ordered. EDMS EDMS 13:06 09:51 rogers
--- NOTE | 2024-06-23 09:52 | ER ---
Nurse's Notes [facility] Name: Laurita Cooper Age: 83 yrs Sex: Female : 1940 Arrival Date: 06/23/2024 Time: 08:12 Bed 18 Private MD: Diagnosis: Dizziness and giddiness;Displaced fracture of base of neck of left femur;Fall on same level, unspecified Presentation: 06/23 08:23 Chief complaint: EMS states: dizziness that began this morning. Pt believed dizziness ss subsided, but when she was standing in the closet, she had a dizzy spell and fell onto carpeted floor. C/o R hip pain. Coronavirus screen: Client denies travel out of the [place] in the last 14 days. Ebola Screen: Patient denies exposure to infectious person. Patient denies travel to an Ebola-affected area in the 21 days before illness onset. Initial Sepsis Screen: Does the patient meet any 2 criteria? No. Patient's initial sepsis screen is negative. Does the patient have a suspected source of infection? No. Patient's initial sepsis screen is negative. Risk Assessment: Do you want to hurt yourself or someone else? Patient reports no desire to harm self or others. Onset of symptoms was June 23, 2024. 08:23 Method Of Arrival: Ambulatory ss 08:23 Acuity: ALMITA 2 ss 08:27 Care prior to arrival: IV initiated. 20 GA, in the left wrist. ss Historical: - Allergies: 08:26 No Known Allergies; ss - Home Meds: 08:26 None [Active]; ss - PMHx: 08:26 None; ss - PSHx: 08:26 Bladder; ss - Immunization history:: Client reports having NOT received the Covid vaccine. - Infectious Disease History:: Denies. - Social history:: Smoking status: Patient denies any tobacco usage or history of. Screenin:[facility] ED Fall Risk Assessment (Adult) History of falling in the last 3 months, me1 including since admission Yes- single mechanical fall (1 pt) Confusion or Disorientation No (0 pts) Intoxicated or Sedated No (0 pts) Impaired Gait Yes (1 pt) Mobility Assist Device Used No (0 pt) Altered Elimination No (0 pt) Score/Fall Risk Level 0 - 2 = Low Risk Maintained a safe environment, Provided non-skid footwear, Hourly rounding (assess needs \T\ fall precautionary measures) done. Abuse screen: Denies threats or abuse. Nutritional screening: No deficits noted. Tuberculosis screening: No symptoms or risk factors identified. Assessment: 12:10 General: Appears uncomfortable, slender, well groomed, well developed, Behavior is me1 calm, cooperative, appropriate for age, Reports dizziness that began this morning. Pt believed dizziness subsided, but when she was standing in the closet, she had a dizzy spell and fell onto carpeted floor. C/o R hip pain. Pain: Complains of pain in right leg and right upper thigh and right hip Pain does not radiate. Pain currently is 7 out of 10 on a pain scale. at worst was 10 out of 10 on a pain scale. Quality of pain is described as sharp, spasm Pain began Is continuous. Neuro: Level of Consciousness is awake, alert, obeys commands, Oriented to person, place, time, situation, Appropriate for age. Cardiovascular: Patient's skin is warm and dry. Respiratory: Airway is patent Respiratory effort is even, unlabored, Respiratory pattern is regular, symmetrical. GI: No signs and/or symptoms were reported involving the gastrointestinal system. : No signs and/or symptoms were reported regarding the genitourinary system. EENT: No signs and/or symptoms were reported regarding the EENT system. Derm: Skin is intact, is healthy with good turgor, Skin is pink, warm \T\ dry. Musculoskeletal: Range of motion: limited in right leg and right upper thigh and right hip Reports pain in right leg and right upper thigh and right hip. Injury Description: dizziness that began this morning. Pt believed dizziness subsided, but when she was standing in the closet, she had a dizzy spell and fell onto carpeted floor. C/o R hip pain. Vital Signs: 08:23 BP 200 / 92; Pulse 60; Resp 16; Temp 97.5; Pulse Ox 97% ; Weight 49.9 kg; Height 5 ft. ss 3 in. ; Pain 5/10; 10:00 BP 191 / 92; Pulse 77; Resp 18; Pulse Ox 97% ; me1 11:00 BP 183 / 89; Pulse 81; Resp 17; Pulse Ox 98% ; me1 12:00 BP 194 / 92; Pulse 83; Resp 16; Pulse Ox 98% ; me1 13:00 BP 117 / 91; Pulse 82; Resp 16; Temp 98.2; Pulse Ox 95% on R/A; me1 14:00 BP 169 / 91; Pulse 91; Resp 16; Pulse Ox 94% ; me1 08:23 Body Mass Index 19.49 (49.90 kg, 160.02 cm) ss 08:23 Pain Scale: Adult ss ED Course: 08:21 Patient arrived in ED. em1 08:26 Triage completed. ss 08:26 Arm band placed on right wrist. ss 08:27 Stefan Ly MD is Attending Physician. rogers 08:35 Jessy Dunham, JOSAFAT is Primary Nurse. db 09:05 Jessy Dunham, JOSAFAT is Primary Nurse. db 09:19 XRAY Chest (1 view) In Process Unspecified. EDMS 09:19 Pelvis XRAY In Process Unspecified. EDMS 09:19 Hip Right 2 View XRAY In Process Unspecified. EDMS 09:19 CT Head C Spine In Process Unspecified. EDMS 09:24 Femur Right Wo Con In Process Unspecified. EDMS 09:51 Luis Armando Granger MD is Hospitalizing Provider. rogers 12:10 Patient has correct armband on for positive identification. Bed in low position. Call me1 light in reach. Side rails up X2. Provided Education on: POC. Verbalized understanding. 12:10 Maintain EMS IV. Dressing intact. Good blood return noted. Site clean \T\ dry. Gauge \T\ me 1 site: 20g LFA. 12:10 No provider procedures requiring assistance completed. me1 13:29 Patient admitted, IV remains in place. me1 Administered Medications: 08:50 Drug: NS 0.9% IV 500 ml 500 ml IV at 1 bolus once; to be given as a bolus over 30 db minutes Volume: 500 ml; Route: IV; Rate: 1 bolus; Site: left forearm; 13:01 Follow up: Response: No adverse reaction; IV Status: Completed infusion; IV Intake: me1 500ml 08:50 Drug: NS 0.9% IV 500 ml 500 ml IV at 125 ml/hr once Volume: 500 ml; Route: IV; Rate: db 125 ml/hr; Site: left forearm; 14:14 Follow up: Response: No adverse reaction; IV Status: Completed infusion; IV Intake: me1 500ml 09:05 Drug: fentaNYL (PF) IVP 25 mcg IVP once Route: IVP; Site: left forearm; db 13:00 Follow up: Response: No adverse reaction; Pain is decreased me1 09:05 Drug: Ondansetron IVP 4 mg IVP once; over 2 minutes Route: IVP; Site: left forearm; db 13:00 Follow up: Response: No adverse reaction; Nausea is decreased me1 09:40 Drug: fentaNYL (PF) IVP 25 mcg IVP once Route: IVP; Site: left forearm; db 13:01 Follow up: Response: No adverse reaction; Pain is decreased me1 11:40 Drug: fentaNYL (PF) IVP 25 mcg IVP once Route: IVP; Site: left antecubital; hb 13:00 Follow up: Response: No adverse reaction; Pain is unchanged, physician notified me1 12:06 Drug: HYDROmorphone IVP 0.5 mg IVP once Route: IVP; Site: left forearm; hb 13:28 Follow up: Response: No adverse reaction; Pain is decreased me1 12:18 Drug: Ondansetron IVP 4 mg IVP once; over 2 minutes Route: IVP; Site: left forearm; hb 13:00 Follow up: Response: No adverse reaction; Nausea is decreased me1 13:02 Drug: HYDROmorphone IVP 0.5 mg IVP once Route: IVP; Site: left forearm; me1 13:28 Follow up: Response: No adverse reaction; Pain is decreased me1 Medication: 12:10 VIS not applicable for this client. me1 Intake: 13:01 IV: 500ml; Total: 500ml. me1 14:14 IV: 500ml; Total: 1000ml. me1 Outcome: 09:51 Decision to Hospitalize by Provider. rogers 13:28 Admitted to Tele accompanied by tech, via stretcher, room 404, with chart, Report me1 called to faxed, receipt confirmed by JOSAFAT Dominguez with 4th floor 13:28 Condition: stable 13:28 Instructed on the need for admit, 14:32 Patient left the ED. me1 Signatures: Dispatcher [employer] EDNE Stefan Ly MD MD cha Martinez, Eric em1 Angelica Hoffmann RN RN Giuliana Ladd RN RN Jessy Dunham RN RN db Abby Castaneda RN RN me1 Corrections: (The following items were deleted from the chart) 13:25 08:23 Chief complaint: EMS states: dizziness that began this morning. Pt believed me1 dizziness subsided, but when she was standing in the closet, she had a dizzy spell and fell onto carpeted floor. C/o R hip pain ss
--- NOTE | 2024-06-23 10:13 | RAD REPORT ---
EXAM: CT right femur without contrast CLINICAL INDICATION: pain, fracture. TECHNIQUE: CT of the right femur was performed without contrast. Axial, sagittal, and coronal reconst ructed images. This exam was performed according to our departmental dose-optimization program, which includes automated exposure control, adjustment of the mA and/or kV according to patient size a nd/or use of iterative reconstruction technique. COMPARISON: Recent plain radiographs. FINDINGS: Bones are moderately demineralized. Subcapital fracture seen proximal right femur with varus angulati on. No additional fracture or dislocation seen elsewhere. Small right knee joint effusion with Bergeron's cyst measuring 2.5 cm. No pathologic intrapelvic abnormality. IMPRESSION: Subcapital fracture proximal right femur with varus angulation.
[2024-06-23 10:40] LABS: ALT/SGPT 17 U/L (13-56); AST/SGOT 14 U/L (15-37); Albumin 2.7 g/dL (3.4-5.0); Albumin/Globulin Ratio 0.8 (1.1-1.8); Alkaline Phosphatase 79 U/L (45-117); Anion Gap 8.2 mEq/L (5.0-15.0); BUN Blood Urea Nitrogen 17 mg/dL (7-18); Bicarbonate 23 mEq/L (21-32); Bilirubin Total 0.4 mg/dL (0.2-1.0); Globulin 3.3 g/dL (2.3-3.5); Glomerular Filtration Rate 87 ml/min (=/>90); Glucose Level 84 mg/dL (74-106); Magnesium 1.7 mg/dL (1.6-2.4); NT PRO-BNP 289 pg/mL (<450); Potassium 3.2 mEq/L (3.5-5.1); Sodium Level 142 mEq/L (136-145); Troponin High Sensitivity 14.5 pg/mL (<58.9)
[2024-06-23 10:41] LABS: Bilirubin Direct < 0.2 mg/dL (0-0.2); Bilirubin Indirect, Calculated 0.2 mg/dL (0.2-0.8)
[2024-06-23] MEDS ORDERED: MORPHINE 4 MG/ML SYR ONE (11:26)
[2024-06-23] MEDS ORDERED: HYDROMORPHONE HCL 0.5 MG/0.5 ML INJ ONE ×2 (11:57→12:59)
[2024-06-23] MEDS ORDERED: ACETAMINOPHEN 500 MG TAB PO PRN (12:51)
[2024-06-23] MEDS ORDERED: ALBUTEROL INHALER 200 PUFF/6.7 GM IH PRN (12:58)
--- NOTE | 2024-06-23 13:28 | P.HP ---
Certification for Inpatient Patient will require the following post-hospital care: Home Health Services Practitioner: I am a practitioner with admitting privileges, knowledge of patient current condition, hospital course, and medical plan of care. Services: Services provided to patient in accordance with Admission requirements found in Title 42 Section 412.3 of the Code of Federal Regulations Patient History Date of Service: 06/23/24 Reason for admission: hip fracture History of Present Illness: 83-year-old female with minimal past medical history presenting after a fall at home. She did not lose consciousness. She states she fell dizzy and fell backwards. She denies any recent infection, using any new or recent cito-uhi-hhenxju medications, chest pain, or feeling of passing out. Her daught er and are at bedside. She is relatively functional throughout the day. 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 -: repair of perforated ulcer - Social History Alcohol use: No CD- Drugs: No Caffeine use: Yes Review of Systems General: Unremarkable Eyes: Unremarkable ENT: Unremarkable Respiratory: Unremarkable Cardiovascular: Unremarkable Gastrointestinal: Unremarkable Musculoskeletal: Leg Pain Integumentary: Unremarkable Neurological: Unremarkable Lymphatics: Unremarkable Physical Examination - Physical Exam General: Alert, In no apparent distress HEENT: Atraumatic Respiratory: Clear to auscultation bilaterally Cardiovascular: No edema, Normal pulses Capillary refill: <2 Seconds Gastrointestinal: Normal bowel sounds Musculoskeletal: No contractures Integumentary: No rashes Neurological: Abnormal gait Lymphatics: No axilla or inguinal lymphadenopathy - Studies Laboratory Data (last 24 hrs) 06/23/24 06/23/24 06/23/24 09:52 08:50 08:50 WBC 7.00 Hgb 12.9 Hct 39.4 Plt Count 173 PT 11.0 INR 1.05 Sodium 142 Potassium 3.2 L BUN 17 Creatinine 0.68 Glucose 84 Magnesium 1.7 Total Bilirubin 0.4 AST 14 L ALT 17 Alkaline Phosphatase 79 Assessment and Plan - Plan Subcapital right femur fracture Leg pain Hypertension Orthopedic surgery consulted N.p.o. at midnight Pain control Continue amlodipine Labs reviewed IV fluids EKG within normal limits No history of heart failure, cerebrovascular disease or diabetes RCRI index with 0.5% Patient has a moderate met score within 4-7 and meets functional capacity for age - Advance Directives Does patient have a Living Will: No Does patient have a Durable POA for Healthcare: No
[2024-06-23] MEDS: NA CHLORIDE 0.9% 1,000 ML IV SCH (15:07)
[2024-06-23] MEDS: MORPHINE 2 MG/ML SYR IV PRN ×2 (15:21→19:20)
[2024-06-23] MEDS: LABETALOL 20 MG/4ML SYRINGE IV ONE ×2 (15:59→16:08)
[2024-06-23] MEDS: HYDROCODONE/APAP 5/325 MG TAB PO PRN (16:55)
[2024-06-23] MEDS: methocarbamoL 500 MG TAB PO PRN (19:20)
[2024-06-23] MEDS: HYDROMORPHONE HCL 2 MG/ML inj IV PRN (21:21)
[2024-06-23] MEDS: TRAMADOL HCL 50 MG TAB PO PRN (23:12)
[2024-06-24] MEDS: AMLODIPINE 5 MG TAB PO ONE (00:02)
[2024-06-24] MEDS: HYDRALAZINE HCL 20 MG/ML VIAL IV PRN (04:58)
[2024-06-24] MEDS: HYDROMORPHONE HCL 0.5 MG/0.5 ML INJ IV PRN (04:59)
--- NOTE | 2024-06-24 06:55 | P.PN ---
Date of Service: 06/24/24 Subjective: Seen postop. Resting comfortably on 2 L nasal. She is still pretty drowsy after the surgery Review of Systems General: Unremarkable Eyes: Unremarkable ENT: Unremarkable Respiratory: Unremarkable Cardiovascular: Unremarkable Gastrointestinal: Unremarkable Musculoskeletal: Leg Pain Integumentary: Unremarkable Neurological: Unremarkable Lymphatics: Unremarkable Physical Examination - Physical Exam General: Alert, In no apparent distress HEENT: Atraumatic Respiratory: Clear to auscultation bilaterally Cardiovascular: No edema, Normal pulses Capillary refill: <2 Seconds Gastrointestinal: Normal bowel sounds Musculoskeletal: No contractures. Right hip dressing in place Integumentary: No rashes Neurological: Abnormal gait Lymphatics: No axilla or inguinal lymphadenopathy - Studies Laboratory Data (last 24 hrs) 06/23/24 06/23/24 06/23/24 09:52 08:50 08:50 WBC 7.00 Hgb 12.9 Hct 39.4 Plt Count 173 PT 11.0 INR 1.05 Sodium 142 Potassium 3.2 L BUN 17 Creatinine 0.68 Glucose 84 Magnesium 1.7 Total Bilirubin 0.4 AST 14 L ALT 17 Alkaline Phosphatase 79 Assessment and Plan - Plan Subcapital right femur fracture Leg pain Hypertension s/p right hip hemiarthroplasty Wean O2 as able Pain control Continue amlodipine Labs reviewed EKG within normal limits No history of heart failure, cerebrovascular disease or diabetes DVT prophylaxis with Lovenox Full code - Advance Directives Does patient have a Living Will: No Does patient have a Durable POA for Healthcare: No
[2024-06-24 07:50] LABS: Albumin 3.2 g/dL (3.4-5.0); Albumin/Globulin Ratio 0.8 (1.1-1.8); Anion Gap 10.5 mEq/L (5.0-15.0); Bilirubin Total 0.7 mg/dL (0.2-1.0); Globulin 4.2 g/dL (2.3-3.5); Potassium 4.5 mEq/L (3.5-5.1); Protein, Total 7.4 g/dL (6.4-8.2)
[2024-06-24] MEDS: ONDANSETRON 4 MG/2 ML VIAL IV PRN (07:50)
[2024-06-24] MEDS: ENOXAPARIN 40 MG/0.4 ML SQ SCH (08:32)
[2024-06-24] MEDS: AMLODIPINE 10 MG TAB PO SCH (08:32)
[2024-06-24] MEDS: Ringers Lactate 1,000 ML IV ONE ×3 (08:33→12:39)
[2024-06-24] MEDS: TRANEXAMIC ACID 1,000 MG/10 ML VIAL IV ONE (08:39)
[2024-06-24] MEDS ORDERED: ROCURONIUM 50 MG/5 ML VIAL IV ONE (09:58)
[2024-06-24] MEDS ORDERED: LIDOCAINE 2% MPF 5 ML VIAL ONE (09:58)
[2024-06-24] MEDS ORDERED: FENTANYL CITR 100 MCG/2 ML ONE (09:58)
[2024-06-24] MEDS ORDERED: propofoL 200 MG/20 ML VIAL IV ONE (09:58)
[2024-06-24] MEDS ORDERED: Phenylephrine HCl 10 MG/ML 1 ML VIAL ONE (10:26)
[2024-06-24] MEDS: CEFAZOLIN SODIUM 1 GM/VIAL ONE (10:40)
[2024-06-24] MEDS ORDERED: ONDANSETRON 4 MG/2 ML VIAL ONE (11:01)
[2024-06-24] MEDS ORDERED: dexAMETHasone 4 MG/ML VIAL ONE (11:02)
[2024-06-24] MEDS: SUGAMMADEX SODIUM 200 MG/2 ML VIAL IV ONE (11:18)
--- NOTE | 2024-06-24 11:28 | CON ---
Date of Consultation: 06/23/2024 Reason For Consultation: Right hip pain. History Of Present Illness: Laurita is an 83-year-old female who presented to the ER after sustaining a fall onto her right side with subsequent pain and inability to bear weight. The patient reports having a dizzy spell. X-rays and CAT scan in the ER demonstrated a displaced right subcapital femur fracture. The patient denies any other musculoskeletal complaints at this time. Review of Systems: As above, otherwise negative. Past Medical History: Includes hypertension, history of an ulcer Past Surgical History: Includes repair of perforated ulcer. Home Medications: Albuterol, amlodipine, Zithromax, Levaquin, and prednisone. Allergies: NO KNOWN DRUG ALLERGIES. Social History: Denies tobacco, alcohol, and drug use. Lives at home. Physical Examination: General: No apparent distress. HEENT: Normocephalic, atraumatic. Neck: Supple. Cardiovascular: Brisk cap refill to all digits. Chest: Nonlabored breathing. Abdomen: Nondistended. Psychiatric: Responsive to exam. Musculoskeletal: Bilateral upper extremities functional range of motion with no pain. No gross deformities. No obvious dislocations. Left lower extremity functional range of motion without pain. No gross deformities. No obvious dislocations. Right lower extremity pain with range of motion of the right hip, tenderness to palpation of the right hip. No skin changes or skin breakdown noted. Neurovascularly intact distally. Diagnostic Studies: X-rays and CAT scan demonstrated displaced right subcapital femoral neck fracture. Assessment/plan: Laurita is an 83-year-old female with a right femoral neck fracture. I discussed with the patient and family at length risks and benefits associated with operative and nonoperative treatment measures. Given the displaced nature of her fracture, we proceeded with right hip hemiarthroplasty. Discussed risks and benefits associated with the surgical procedure and they expressed understanding. We will proceed with surgery tomorrow morning. Hospital service will evaluate the patient and will obtain medical clearance prior to surgery. ZELDA/MODL Voice ID: [id number] Report ID: [id number] BRETT
--- NOTE | 2024-06-24 12:26 | P.BOP ---
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
[2024-06-24] MEDS: HYDROMORPHONE HCL 1 MG/ML INJ ONE (13:03)
--- NOTE | 2024-06-24 14:21 | RAD REPORT ---
EXAMINATION: XR Hip Right 2 View CLINICAL INDICATION: Female, 83 years old. [facility] postop TECHNIQUE: 2 view radiograph of the right hip were obtained. COMPARISON: No prior exam. FINDINGS: No evidence of fracture or dislocation. Right hip arthroplasty hardware in satisfactory ali gnment. Postsurgical changes in the surrounding soft tissues. Skin anyi present. Pelvic bony ring is intact. IMPRESSION: Expected findings following right total hip arthroplasty.
[2024-06-24] MEDS: CEFAZOLIN 1 GM in NA CHLORIDE 0.9% 50 ML IVPB SCH (16:11)
[2024-06-25 06:11] LABS: AST/SGOT 21 U/L (15-37); Albumin 2.5 g/dL (3.4-5.0); Albumin/Globulin Ratio 0.7 (1.1-1.8); Alkaline Phosphatase 71 U/L (45-117); BUN Blood Urea Nitrogen 18 mg/dL (7-18); Bicarbonate 26 mEq/L (21-32); Bilirubin Total 0.6 mg/dL (0.2-1.0); Globulin 3.6 g/dL (2.3-3.5); Glomerular Filtration Rate 79 ml/min (=/>90); Glucose Level 111 mg/dL (74-106); Protein, Total 6.1 g/dL (6.4-8.2); Sodium Level 136 mEq/L (136-145)
[2024-06-25 06:12] LABS: ALT/SGPT < 14 U/L (13-56)
[2024-06-25 06:42] LABS: Absolute Lymphocytes (CBC) 1.1 K/uL (0.7-4.9); Basophils % 0.2 % (0-1.3); Eosinophils % 0.1 % (0-4.4); Hematocrit 30.6 % (36.0-45.0); Lymphocytes % 10.1 % (15.3-44.8); MCH 29.5 pg (27.0-35.0); MCHC 32.6 g/dL (32.0-36.0); MCV 90.4 fL (80-100); MPV 8.6 fL (7.6-11.3); Monocytes % 8.6 % (3.3-12.3); Platelets 142 thou/uL (152-406); RBC Red Blood Cell Count 3.38 M/uL (3.86-4.86); Red Cell Distribution Width 14.6 % (12.1-15.2)
[2024-06-25] MEDS: HYDROCODONE/APAP 7.5/325 MG TAB PO PRN (08:49)
[2024-06-25] MEDS: DOCUSATE NA 100 MG CAP PO PRN (11:53)
[2024-06-25] MEDS ORDERED: LABETALOL 20 MG/4ML SYRINGE IV PRN (14:08)
--- NOTE | 2024-06-25 14:09 | P.PN ---
Date of Service: 06/25/24 Subjective: Endorses severe pain. States she is not able to move well. Her is at bedside. Denies any fevers, chills. Mildly elevated blood pressures overnight. Rates the pain as a 9 out of 10 Review of Systems General: Unremarkable Eyes: Unremarkable ENT: Unremarkable Respiratory: Unremarkable Cardiovascular: Unremarkable Gastrointestinal: Unremarkable Musculoskeletal: Leg Pain Integumentary: Unremarkable Neurological: Unremarkable Lymphatics: Unremarkable Physical Examination - Physical Exam General: Alert, In no apparent distress HEENT: Atraumatic Respiratory: Clear to auscultation bilaterally Cardiovascular: No edema, Normal pulses Capillary refill: <2 Seconds Gastrointestinal: Normal bowel sounds Musculoskeletal: No contractures. Right hip dressing in place Integumentary: No rashes Neurological: Abnormal gait Lymphatics: No axilla or inguinal lymphadenopathy - Studies Laboratory Data (last 24 hrs) 06/23/24 06/23/24 06/23/24 09:52 08:50 08:50 WBC 7.00 Hgb 12.9 Hct 39.4 Plt Count 173 PT 11.0 INR 1.05 Sodium 142 Potassium 3.2 L BUN 17 Creatinine 0.68 Glucose 84 Magnesium 1.7 Total Bilirubin 0.4 AST 14 L ALT 17 Alkaline Phosphatase 79 Assessment and Plan - Plan Subcapital right femur fracture Leg pain Hypertension Leukocytosis Anemia Thrombocytopenia s/p right hip hemiarthroplasty Leukocytosis likely secondary to surgery Continue IV Dilaudid Add [place] every 6 as needed Wean O2 as able Continue amlodipine CBC in the a.m. Colace as needed Physical therapy consult DVT prophylaxis with Lovenox Full code - Advance Directives Does patient have a Living Will: No Does patient have a Durable POA for Healthcare: No
--- NOTE | 2024-06-25 17:20 | P.OP ---
Preoperative diagnosis: Right femoral neck fracture Postoperative diagnosis: Same Primary procedure: Right hip hemiarthroplasty Anesthesia: General Estimated blood loss: 100 cc Specimen: Right femoral head Findings: See dictation Operative Technique: Indication For Procedure: Laurita is an 83-year-old female who presented to the ER after sustaining a fall with subsequent pain in the right hip. Imaging demonstrated a displaced right femoral neck fracture. Risks and benefits associated with the procedure were discussed with the patient and her niece at length and they expressed understanding and elected to proceed with operative treatment. Description Of Procedure: After informed consent was obtained, the patient was identified in the preoperative holding area. The right lower extremity was marked. The patient was then brought back to the operative room, transferred tothe operative table in supine fashion and placed under general endotracheal anesthesia. She was then placed in the right lateral decubitus position. The right lower extremity was then prepped and draped in usual sterile fashion. A time-out was initiated. The correct patient and procedure confirmed and identified. The patient did receive preoperative prophylactic antibiotics. Approximately, a 10 cm curvilinear incision was made centered over the greater trochanter consistent with the posterior approach to the right hip. Dissection was then taken down to the tensor fascia cat, which was split in line with the incision. Finally, retractors were placed and blunt dissection was then taken down to the short external rotators, which were tagged using #5 Ethibond. A T-shaped capsulotomy was performed. The femoral head was removed and sized at a 47 mm. A trial head was then placed with good overall fit. Trial was then removed. Next, attention was taken on preparation of the proximal femur. A rongeur was used to remove any fracture fragments as this was a subcapital type fracture. To get exposure, a first cookie cutter was placed followed by canal finder and the lateralizer. The femoral canal was then reamed sequentially from 7 mm to the size 12 mm, followed by broaching and 1 mm increments to a size 12 mm broach. A calcar planer was then used to clean up the calcar. The hip was then reduced and a size 47 x +3 mm neck length was selected with good overall leg length and stability. Trial implants were removed. The hip was then irrigated thoroughly with pulse lavage. A cement bone plug was then placed distally to 160 mm followed by cement was then prepared on the back table using a cement gun and then placed down the femoral canal. After the stent was placed, a size 11 mm Echo Fracture stem was placed with adequate version noted until the cement was hardened. Next, a trial implants were then used to again trial a size 47 mm shell and a +3 mm head and neck length. There was good overall leg length and stability noted. Final implants were placed using a 47 mm acetabular shell and a 28 x +3 mm head. Hip was then again reduced and there was overall stability and leg length noted. Wounds were then irrigated thoroughly with normal saline. Capsule was then approximated using #5 Ethibond, followed by repair of the external rotators, tensor fascia cat was approximated using #1 Vicryl and the deep tissues approximated using an 0 Vicryl. Subcutaneous tissues approximated with 2-0 Vicryl and skin was approximated using anyi. Sterile dressings were applied. Patient was placed in an abduction pillow, awakened and transferred to PACU in stable condition. Postoperative Plan: The patient will be weightbearing as tolerated on the right lower extremity with posterior hip precautions. Physical therapy will be consulted to aid with mobilization. Underwriter Solicitation Director will be consulted to aid with placement. Complications: None Implants: Biomet Becca 11 echo fracture stem, 47 shell, 28 x +3 mm head Fluids & blood products: Per anesthesia record Transferred to: Recovery Room Condition: Good
[2024-06-26 06:24] LABS: Absolute Basophils 0.1 K/uL (0-0.5); Absolute Lymphocytes (CBC) 1.1 K/uL (0.7-4.9); Absolute Monocytes 0.8 K/uL (0.1-1.3); Absolute Neutrophil 7.3 K/uL (1.8-8.0); Basophils % 0.5 % (0-1.3); Eosinophils % 0.4 % (0-4.4); Hematocrit 29.1 % (36.0-45.0); Hemoglobin 9.6 g/dL (12.0-15.0); Lymphocytes % 11.4 % (15.3-44.8); MCH 29.9 pg (27.0-35.0); MCHC 33.1 g/dL (32.0-36.0); MCV 90.4 fL (80-100); MPV 8.1 fL (7.6-11.3); Monocytes % 9.1 % (3.3-12.3); Neutrophils % 78.6 % (41.7-73.7); Platelets 135 thou/uL (152-406); RBC Red Blood Cell Count 3.21 M/uL (3.86-4.86); Red Cell Distribution Width 14.4 % (12.1-15.2)
--- NOTE | 2024-06-26 12:13 | EKG ---
Test Date: 2024-06-23 Test Time: 08:50:51 Sports Medicine Trainer: YUNIOR MEASUREMENT RESULTS: Intervals: Rate: 73 [place]: 144 QRSD: 90 QT: 390 QTc: 429 [place]: P: 71 [place]: 144 QRS: 78 T: 82 INTERPRETIVE STATEMENTS: Normal sinus rhythm Nonspecific ST abnormality Abnormal ECG No previous ECG available for comparison Electronically Signed On 06-26-24 12:11:07 CHIP MACHINE OPERATOR by Hugh Helm
--- NOTE | 2024-06-26 14:47 | P.PN ---
Date of Service: 06/26/24 Subjective: Her pain has improved. Pain is rated at a 5 out of 10 today. Family is at bedside and asking for inpatient rehab. She denies chills, fevers, headache. She is now tolerating a diet. We discussed stopping IV fluids Review of Systems General: Unremarkable Eyes: Unremarkable ENT: Unremarkable Respiratory: Unremarkable Cardiovascular: Unremarkable Gastrointestinal: Unremarkable Musculoskeletal: Leg Pain Integumentary: Unremarkable Neurological: Unremarkable Lymphatics: Unremarkable Physical Examination - Physical Exam General: Alert, In no apparent distress HEENT: Atraumatic Respiratory: Clear to auscultation bilaterally Cardiovascular: No edema, Normal pulses Capillary refill: <2 Seconds Gastrointestinal: Normal bowel sounds Musculoskeletal: No contractures. 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 Colace as needed As needed labetalol for elevated blood pressures DVT prophylaxis with SCDs Full code - Advance Directives Does patient have a Living Will: No Does patient have a Durable POA for Healthcare: No
--- NOTE | 2024-06-27 15:11 | P.PN ---
Date of Service: 06/27/24 Subjective: No new issues. Her is at bedside Review of Systems General: Unremarkable Eyes: Unremarkable ENT: Unremarkable Respiratory: Unremarkable Cardiovascular: Unremarkable Gastrointestinal: Unremarkable Musculoskeletal: Leg Pain Integumentary: Unremarkable Neurological: Unremarkable Lymphatics: Unremarkable Physical Examination - Physical Exam General: Alert, In no apparent distress HEENT: Atraumatic Respiratory: Clear to auscultation bilaterally Cardiovascular: No edema, Normal pulses Capillary refill: <2 Seconds Gastrointestinal: Normal bowel sounds Musculoskeletal: No contractures. 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
--- NOTE | 2024-06-28 15:26 | P.PN ---
Date of Service: 06/28/24 Subjective: Resting comfortably in bed. Some elevated blood pressures overnight. Pain is tolerable. She rates the pain at a 5 out of 10. Review of Systems General: Unremarkable Eyes: Unremarkable ENT: Unremarkable Respiratory: Unremarkable Cardiovascular: Unremarkable Gastrointestinal: Unremarkable Musculoskeletal: Leg Pain Integumentary: Unremarkable Neurological: Unremarkable Lymphatics: Unremarkable Physical Examination - Physical Exam General: Alert, In no apparent distress HEENT: Atraumatic Respiratory: Clear to auscultation bilaterally Cardiovascular: No edema, Normal pulses Capillary refill: <2 Seconds Gastrointestinal: Normal bowel sounds Musculoskeletal: No contractures. 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
[2024-06-29 05:09] VITALS: BMI 22.1
[2024-06-29 08:05] LABS: Absolute Eosinophils 0.1 K/uL (0-0.5); Absolute Lymphocytes (CBC) 0.8 K/uL (0.7-4.9); Absolute Monocytes 0.5 K/uL (0.1-1.3); Absolute Neutrophil 4.7 K/uL (1.8-8.0); Basophils % 0.4 % (0-1.3); Eosinophils % 1.3 % (0-4.4); Hematocrit 30.4 % (36.0-45.0); Hemoglobin 10.3 g/dL (12.0-15.0); Lymphocytes % 13.1 % (15.3-44.8); MCH 30.1 pg (27.0-35.0); MCHC 33.8 g/dL (32.0-36.0); MCV 89.2 fL (80-100); Neutrophils % 77.2 % (41.7-73.7); Nucleated Red Blood Cells % 0.1 % (0-0); Platelets 215 thou/uL (152-406); RBC Red Blood Cell Count 3.41 M/uL (3.86-4.86)
[2024-06-29 08:21] LABS: AST/SGOT 16 U/L (15-37); Albumin 2.4 g/dL (3.4-5.0); Albumin/Globulin Ratio 0.6 (1.1-1.8); Alkaline Phosphatase 80 U/L (45-117); Anion Gap 9.4 mEq/L (5.0-15.0); BUN Blood Urea Nitrogen 15 mg/dL (7-18); Bicarbonate 29 mEq/L (21-32); Bilirubin Total 0.5 mg/dL (0.2-1.0); Globulin 4.1 g/dL (2.3-3.5); Glomerular Filtration Rate 89 ml/min (=/>90); Glucose Level 105 mg/dL (74-106); Potassium 3.4 mEq/L (3.5-5.1); Protein, Total 6.5 g/dL (6.4-8.2); Sodium Level 138 mEq/L (136-145)
[2024-06-29 08:22] LABS: ALT/SGPT < 14 U/L (13-56)
--- NOTE | 2024-06-29 10:02 | P.PN ---
Date of Service: 06/29/24 Subjective: No new complaints. Resting comfortably in bed. Some elevated blood pressures overnight. Denies fevers and chills Review of Systems General: Unremarkable Eyes: Unremarkable ENT: Unremarkable Respiratory: Unremarkable Cardiovascular: Unremarkable Gastrointestinal: Unremarkable Musculoskeletal: Leg Pain Integumentary: Unremarkable Neurological: Unremarkable Lymphatics: Unremarkable Physical Examination - Physical Exam General: Alert, In no apparent distress HEENT: Atraumatic Respiratory: Clear to auscultation bilaterally Cardiovascular: No edema, Normal pulses Capillary refill: <2 Seconds Gastrointestinal: Normal bowel sounds Musculoskeletal: No contractures. Right hip dressing in place Integumentary: No rashes Neurological: Abnormal gait Lymphatics: No axilla or inguinal lymphadenopathy - Studies Laboratory Data (last 24 hrs) 06/23/24 06/23/24 06/23/24 09:52 08:50 08:50 WBC 7.00 Hgb 12.9 Hct 39.4 Plt Count 173 PT 11.0 INR 1.05 Sodium 142 Potassium 3.2 L BUN 17 Creatinine 0.68 Glucose 84 Magnesium 1.7 Total Bilirubin 0.4 AST 14 L ALT 17 Alkaline Phosphatase 79 Assessment and Plan - Plan Subcapital right femur fracture Leg pain Hypertension Anemia Thrombocytopenia Hypokalemia Leukocytosis resolved legal services professional consult for inpatient rehab Appreciate physical therapy recommendation s/p right hip hemiarthroplasty Replace potassium Continue [place] and tramadol as needed Continue amlodipine CBC reviewed [place] as needed As needed labetalol for elevated blood pressures likely due to pain DVT prophylaxis with SCDs Full code - Advance Directives Does patient have a Living Will: No Does patient have a Durable POA for Healthcare: No
[2024-06-29] MEDS: POTASSIUM PHOS IN 0.9 % NACL 15 MMOL/250 ML BAG IV ONE (16:24)
[2024-06-30 07:53] VITALS: BP 133/59
[2024-06-30 08:54] VITALS: TEMP 98
[2024-06-30 09:41] VITALS: O2SAT 97
--- NOTE | 2024-06-30 14:08 | P.DS ---
Admission Date: 06/23/24 Discharge Date: 06/30/24 Disposition: TRANSFER TO INPATIENT REHAB Discharge Condition: GOOD Reason for Admission: hip fracture Brief History of Present Illness: 83-year-old female with minimal past medical history presenting after a fall at home. She did not lose consciousness. She states she fell dizzy and fell backwards. She denies any recent infection, using any new or recent liiq-fly-ebnssgt medications, chest pain, or feeling of passing out. Her daughter and are at bedside. She is relatively functional throughout the day. Otherwise in very good health Hospital Course: 83-year-old female with no significant PMhx , initially presented for fall with right hip pain. CT of the right femur was positive for right subcapital fracture of the right proximal femur. Underwent right hip hemiarthroplasty on 06/24/2024. Postprocedure, was receiving physical therapy. Eventually discharged to inpatient rehab per PT recommendation. Vital Signs/Physical Exam: Temp Pulse Resp BP Pulse Ox 98 F 92 H 18 133/59 L 97 06/30/24 08:00 06/30/24 08:00 06/30/24 08:00 06/30/24 08:00 06/30/24 08:00 General: Alert, Oriented x3 Neck: Supple Respiratory: Clear to auscultation bilaterally Gastrointestinal: Normal bowel sounds Musculoskeletal: No clubbing, No swelling, No erythema Neurological: Normal gait External genitalia: No edema Laboratory Data at Discharge: WBC 6.10 thou/uL (4.3-10.9) 06/29/24 07:46 Hgb 10.3 g/dL (12.0-15.0) L 06/29/24 07:46 Hct 30.4 % (36.0-45.0) L 06/29/24 07:46 Plt Count 215 thou/uL (152-406) 06/29/24 07:46 PT Cancelled 06/23/24 Unknown INR Cancelled 06/23/24 Unknown Sodium 138 mEq/L (136-145) 06/29/24 07:46 Potassium 3.4 mEq/L (3.5-5.1) L 06/29/24 07:46 BUN 15 mg/dL (7-18) 06/29/24 07:46 Creatinine 0.64 mg/dL (0.55-1.02) 06/29/24 07:46 Glucose 105 mg/dL (74-106) 06/29/24 07:46 Magnesium 1.7 mg/dL (1.6-2.4) 06/23/24 09:52 Total Bilirubin 0.5 mg/dL (0.2-1.0) 06/29/24 07:46 AST 16 U/L (15-37) 06/29/24 07:46 ALT < 14 U/L (13-56) 06/29/24 07:46 Alkaline Phosphatase 80 U/L (45-117) 06/29/24 07:46 Home Medications: Albuterol Inhaler [Ventolin Inhaler*] 2 puff IH Q6H PRN #1 hfa.aer.ad 06/01/13 Amlodipine [Norvasc*] 10 mg PO DAILY #30 tab 06/01/13 Acetaminophen [Tylenol] 650 mg PO Q6HP PRN 7 Days 06/30/24 Albuterol Inhaler [Ventolin Inhaler*] 2 puff IH Q6H PRN 06/30/24 Docusate [Colace Cap*] 200 mg PO DAILY PRN cap 06/30/24 Enoxaparin Sodium [Lovenox 40 MG INJ*] 40 mg SQ DAILY syr 06/30/24 Ondansetron [Zofran*] 4 mg IV Q8H PRN vial 06/30/24 New Medications: Acetaminophen [Tylenol] 650 mg PO Q6HP PRN 7 Days PRN Reason: Pain Scale 8-10 (Severe) Followup: NONE,NONE [Primary Care Provider] - Noe Goyal MD [ACTIVE - CAN ADMIT] - 1-2 Weeks
== END 2024-06-30 10:04 | DRG 522 ==
LOC: ER 08:12 → ERHOLD 12:51 → 4TH 13:58
PROVIDERS: ADMIT Family Medicine; ATTEND Internal Medicine
PROC: 0SRR0J9 Replacement of Right Hip Joint, Femoral Surface with Synthetic Substitute, Cemented, Open Approach (ICD-10-PCS; principal; 2024-06-24 09:30)
DX: S72.041A Displaced fracture of base of neck of right femur, initial encounter for closed fracture (principal); D64.9 Anemia, unspecified; D69.6 Thrombocytopenia, unspecified; I10 Essential (primary) hypertension; D72.829 Elevated white blood cell count, unspecified; Z79.52 Long term (current) use of systemic steroids; Z79.899 Other long term (current) drug therapy; Z28.310 Unvaccinated for COVID-19; W18.30XA Fall on same level, unspecified, initial encounter; Y93.9 Activity, unspecified; Y92.019 Unspecified place in single-family (private) house as the place of occurrence of the external cause; Y99.9 Unspecified external cause status
CPT/HCPCS: 36415; 70450; 71045; 72125; 72170; 73700; 80048; 80053; 80076; 82947; 83735; 83880; 84484; 85025; 85610; 88305; 88311; 93005; 94010; 94760; 97116; 97161; 97530; 99285; C1776; J0360; J0690; J1100; J1171; J1650; J2003; J2270; J2371; J2405; J2704; J3010; J7030; J7120

== ENCOUNTER 2024-06-30 08:05 | Inpatient (IN) | payer OTHER ==
[2024-06-30] MEDS ORDERED: DOCUSATE NA 100 MG CAP PO PRN (10:38)
[2024-06-30] MEDS ORDERED: ONDANSETRON 4 MG (ODT) TAB PO PRN (10:39)
[2024-06-30 11:37] VITALS: BMI 19.5
[2024-06-30] MEDS: ACETAMINOPHEN 500 MG TAB PO PRN (12:10)
[2024-06-30] MEDS: BACLOFEN 10 MG TAB PO SCH (12:55)
[2024-06-30] MEDS: APIXABAN 2.5 MG TABLET PO SCH (21:01)
--- NOTE | 2024-07-01 02:03 | HP ---
Date of Admission: 06/30/2024 Time Of Service: 1:30 p.m. Chief Complaint: "I fell and I broke my right hip." History Of Present Illness: Ms. Carter is an 83-year-old patient with hypertension, who had perforate d ulcer, who was at home attempting to get dressed on the 23 of June. When she stood up to pul l up her jeans, got dizzy and fell on the right side. She developed severe pain and was unable to be ar weight. She was brought to the emergency department at [facility], where imaging showed right subcapital femoral neck fracture. She was seen by Orthopedic Service who recommended right hem iarthroplasty. The surgery was performed. Postoperatively, she had anemia, thrombocytopenia, hypoka lemia, leukocytosis. Her electrolyte abnormalities did improve. Leukocytosis had resolved. She did require supplemental oxygen which was weaned. She has constipation requiring stool softener and lax ative. She had DVT prophylaxis with Lovenox. Blood pressure was followed and managed. She did have low hemoglobin, hematocrit, addressed. 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 She was not using assistive device. Currently, she is at standby assistance level for luu sfers, ambulation, and mobilization, dressing upper and lower body. She does require medication on h ip precautions and management of her comorbid conditions. She is now admitted to inpatient rehabilit ation unit to help her return to her prior level of functioning and to reduce risk of rehospitalizati on. Past Medical History: As noted above. Allergies: NO KNOWN DRUG ALLERGIES. Medications: Tylenol 500 mg every 6 hours as needed, Norvasc 10 mg daily, Colace 200 mg daily, baclo fen that was started at 5 mg daily, Lovenox 40 mg daily, Zofran 4 mg every 6 hours as needed, tramado l 50 mg as needed every 6 hours. Laboratory Studies: White blood cell count 6.1, hemoglobin 10.3, hematocrit 30.4, platelets 215. So dium 138, potassium 3.4, glucose 105, BUN 15, creatinine 0.64, calcium 9.5. Family History: Noncontributory. X-ray/imaging: CT scan of the lower extremity on arrival showed a subcapital fracture of the proxima l right femur with valgus angulation. Chest x-ray on 06/23/2024 showed emphysematous changes that ar e present. Vague haze in the right upper lobe lung suspicious for infiltrate versus pneumonia. Hear t upper limit of normal size. Hip x-ray on 06/23 subcapital fracture of the proximal right femur wit h varus angulation. Pelvis x-ray on 06/23 fracture as noted above. Head or cervical spin e CT scan on 06/23, no evidence of acute osseous abnormality of the cervical spine. Moderate cervica l degeneration. Hip x-ray on 06/24, expected postoperative changes after right hip arthroplasty. Gavin alvarado has had a total hip arthroplasty. Review of Systems: She did have some mild spasming in the muscles which have been relieved by the baclofen. Pain also a round 3/10, that is managed as noted above by multiple modalities. Otherwise, no fevers, chills. No nausea, vomiting, and mild myalgias, arthralgias. No rash. No headache. No weight change. No oth er complaints. Current Level Of Functioning: Currently, setup assistance for eating, grooming, moderate assistance for bathing. Contact guard assistance for upper body and lower body dressing along with moderate ass istance for toileting, supervision for wheelchair transfer, bed transfer to toilet and shower transfe rs as well. Distance, she did cover 280 feet with contact guard assistance. Physical Examination: Vital Signs: Blood pressure 139/70, pulse 93, respiratory rate 17, temperature 98.0, oxygen saturati on 94%. Weight 110 pounds, height 5 feet 3 inches, BMI 19.5. General: Ms. Carter is lying in bed, multiple family members at the bedside that is and daugh ter and granddaughter. HEENT: She is normocephalic, atraumatic. Sclerae anicteric. Oropharynx pink and moist. Neck: Supple. Chest: Clear. Heart: Regular. Extremities: No clubbing, cyanosis, or edema. Postoperative changes as expected and the right femor al neck fracture surgical site has good hemostasis. Rehab And Medical Assessment And Plan: Ms. Carter is an 83-year-old patient admitted to the inpatient rehabilitation unit with impairment category 07, fracture of lower extremity. The impairment group code is 08.11, unilateral hip fracture. Etiologic diagnosis, right femoral neck fracture. Comorbidi ties are decreased mobility, decreased physical functioning, pain, DVT risk, constipation, muscle spa sms, hypertension. Plan: She will have physical and occupational therapy, 3 hours a day, 5 of 7 days. She will continu e with tramadol and baclofen for pain and muscle spasms along with Tylenol, Norvasc for hypertension, Colace for constipation. She has Lovenox 40 mg subcutaneously daily for DVT prophylaxis, Zofran for nausea. Comorbidities That Are Impacting Rehabilitation: She did have some muscle spasms. As noted, she has Bactroban for that may, consider switching from Lovenox to Eliquis 2.5 mg twice daily. Blood pressu re require some slight adjustments on hypertensive medications. Rehab Specific Plan: Ms. Carter will have physical and occupational therapy 3 hours a day, 5 of 7 day s, to improve her ability to transfer from bed to chair, to a wheelchair, to a rolling walker, on and off the toilet, in and out of shower. Therapy will help with her dressing upper and lower body, don hoang and doffing footwear. Also, mobilizing household distances at least 250 feet, up and down 10 st eps with bilateral handrails. Ms. Carter has a good understanding of the process of admission to the inpatient rehabilitation unit a nd how she will benefit from physical and occupational therapy. She will have 24 hours a day, 7 days a week skilled rehabilitation and nursing, daily physician evaluation and management, and social ser vices evaluation and management for discharge planning, home equipment, and continuing therapy. If n eed be, additional help will be sought from the Hospitalist Service and Orthopedic Service. Barriers To Discharge: Currently, muscle spasms are mild. She was doing very well prior to coming i nto the hospital. She should do very well and no significant chance that she may have to go to a [facility] nursing facility before going home. Plan will be if she is doing very well, to go home and then to have therapy via outpatient physical therapy. Length Of Stay: Probably about 12 days. Disposition: Expected to be home with family and continue therapy via outpatient therapy. Prognosis: Good. Code Status: Full code. Rehab Specific Goals: 1. Become independent with upper and body dressing, donning and doffing footwear. 2. Independently mobilize wheelchair 250 feet. 3. Independently ambulate with a walker 250 feet. 4. Independently go up and down 10 steps with bilateral handrails. 5. Independent perform all activities of daily living. 6. Independently do all dressing. 7. Independently perform safety awareness and cognitive functioning. The above goals were reviewed with Ms. Carter and she is in agreement. By signing this document, I acknowledge I personally performed a full physical examination on Ms. Fani crandall no later than 24 hours after her admission to the inpatient rehabilitation unit and determined kayden t she is able to tolerate the above course of treatment at an intensive level for reasonable period o f time. A detailed individualized plan of care for her will be completed by hospital day 4 based on the preadmission screen, history and physical, and therapy evaluations. ELIDA Voice ID: [id number]
[2024-07-01 06:03] LABS: Absolute Eosinophils 0.1 K/uL (0-0.5); Absolute Lymphocytes (CBC) 1.1 K/uL (0.7-4.9); Absolute Monocytes 0.6 K/uL (0.1-1.3); Absolute Neutrophil 3.9 K/uL (1.8-8.0); Basophils % 0.8 % (0-1.3); Eosinophils % 1.4 % (0-4.4); Hematocrit 29.3 % (36.0-45.0); Hemoglobin 9.8 g/dL (12.0-15.0); Lymphocytes % 19.8 % (15.3-44.8); MCH 29.7 pg (27.0-35.0); MCHC 33.3 g/dL (32.0-36.0); MCV 89.1 fL (80-100); MPV 7.6 fL (7.6-11.3); Monocytes % 9.8 % (3.3-12.3); Neutrophils % 68.2 % (41.7-73.7); Platelets 287 thou/uL (152-406); RBC Red Blood Cell Count 3.29 M/uL (3.86-4.86); Red Cell Distribution Width 13.9 % (12.1-15.2)
[2024-07-01 06:23] LABS: Albumin 2.5 g/dL (3.4-5.0); Anion Gap 7.6 mEq/L (5.0-15.0); Potassium 3.6 mEq/L (3.5-5.1); Prealbumin 9.8 mg/dL (20-40)
[2024-07-01] MEDS: AMLODIPINE 10 MG TAB PO SCH (07:15)
[2024-07-01] MEDS ORDERED: ENOXAPARIN 40 MG/0.4 ML SQ SCH (08:00)
[2024-07-01] MEDS ORDERED: cloNIDine HCL 0.1 MG TAB PO PRN (18:57)
[2024-07-01] MEDS ORDERED: MAGNESIUM HYDROXIDE 8% 30 ML PO PRN (18:57)
[2024-07-01] MEDS: BACLOFEN 10 MG TAB PO PRN (19:48)
[2024-07-01] MEDS: DOCUSATE NA 100 MG CAP PO SCH (19:49)
[2024-07-01 20:29] LABS: Urine Bacteria <20 /HPF (<20); Urine Bilirubin NEGATIVE (Negative); Urine Blood Trace (Negative); Urine Clarity Extremely Turbid (Clear); Urine Color Light-Yellow (Yellow); Urine Crystals Unidentified Few /HPF (None Seen); Urine Culture Reflex Order REFLEXED; Urine Glucose NEGATIVE (Negative); Urine Ketones NEGATIVE (Negative); Urine Micro Reflex YN NO BILL MICROSCOPIC; Urine Mucus Slight /HPF (None Seen); Urine Nitrite NEGATIVE (Negative); Urine Protein TRACE (Negative); Urine Urobilinogen Normal (Normal); Urine WBC >50 /HPF (<5); Urine Yeast (Budding) Occasional /HPF (None Seen); Urine pH 7.5 (5.0-7.0)
[2024-07-01] MEDS: TRAMADOL HCL 50 MG TAB PO PRN (21:45)
[2024-07-02] MEDS: MAGNESIUM OXIDE 400 MG TAB PO SCH (09:20)
[2024-07-02] MEDS: CRANBERRY FRUIT EXTRACT 425 MG CAPSULE PO SCH (09:21)
[2024-07-03] MEDS: ENSURE HIGH PROTEIN 237 ML CAN PO SCH (19:25)
[2024-07-03] MEDS: DOCUSATE NA/SENNA CONC 1 TAB PO SCH (19:25)
--- NOTE | 2024-07-03 22:49 | PN ---
Date of Progress Note: 07/03/2024 Time Of Service: 1:35 p.m. Subjective: Ms. Carter is sitting in a chair, getting ready to do therapy. She is very enthusiastic, was able to get up and give a hug, and she was very thankful about being in the unit and very hard w orking already. She is denying any significant pain in the right hip, where she has right femoral ne ck fracture, status post surgical repair. Objective: Denies any significant fevers, chills, nausea, vomiting, myalgias, arthralgias, or rash. No other complaints. Physical Examination: Vital Signs: Blood pressure 158/67, pulse of 78, respiratory rate of 16, temperature 98.1, oxygen sa turation 97%. General: Again, Ms. Carter is sitting comfortably now. HEENT: She is normocephalic, atraumatic. Sclerae anicteric. Oropharynx pink and moist. Neck: Supple. Extremities: She does have good hemostasis in the right femoral neck surgical site. Laboratory Studies: White blood cell count 5.7, hemoglobin 9.8, platelets 287. Sodium 138, potassiu m 3.6, chloride 106, carbon dioxide 28, BUN 14, creatinine 0.65, prealbumin 9.8, albumin 2.5, magnesi um 2.0, calcium 9.5, glucose 104. Urinalysis is consistent with urinary tract infection, esterase 25 0, rbc's 5-10, white blood cells greater than 50, occasional budding yeast, trace protein, trace bloo d, pH 7.5, extreme turbidity. Cultures did grow, however, between 10,000 colony-forming un its of mixed erlin and she also has 2+ yeast identified. Progress Made With Physical And Occupational Therapy: Today, with physical therapy, completed multip le laq-zj-nijig transfers with supervision and cuing required for hip precautions. Able to go back u p in her seat. She ambulated 200 feet and 150 feet with contact guard assistance and she was up and down 15 steps with contact guard assistance. With occupational therapy, supervision for csr-xn-ovuzp transfers and shower. Supervision for bathing, upper body dressing, and doing very well. Assessment And Plan: Ms. Carter is an 83-year-old patient in rehabilitation unit with a right femoral neck fracture. She is status post surgical repair. She has decreased mobility, decreased physical functioning, some mild muscle spasms that have improved. She has hypertension, constipation, insomni a, and moderate malnutrition. She will start Ensure High Protein 237 mL twice daily. She will travis nue with physical and occupational therapy. Continue with clonidine for elevated blood pressure, latonya lofen for muscle spasms, cranberry to reduce the risk of urinary tract infection, magnesium for muscl e spasms, tramadol for pain, Zofran for nausea. Continue with therapy 3 hours a day, 5 of 7 days of physical and occupational therapy. CHRISTOPH/SARABJIT Voice ID: [id number] Report ID: [id number]
--- NOTE | 2024-07-04 22:40 | PN ---
Date of Progress Note: 07/04/2024 Time Of Service: 1:40 p.m. Subjective: Ms. Carter is doing very well. Ambulated well around the unit. She denies any new compl aints. No pain at the right hip surgical site, and family is in the room, although last night she di d have some muscle spasms and woke up around 1:30. She will be given Tylenol along with the baclofen 5 mg at night to reduce the spasms. Review of Systems: No complaints right now. No fevers, chills, nausea, vomiting, myalgias, arthralgias. Physical Examination: Vital Signs: Blood pressure 140/65, pulse 82, respiratory rate 17, temperature 97.6, oxygen saturati on 95%. Weight 110 pounds. Height 5 feet 3 inches. General: Ms. Carter again is resting well. She is in no acute distress. HEENT: Normocephalic, atraumatic. Sclerae anicteric. Oropharynx pink and moist. Musculoskeletal: The right hip surgical site has good hemostasis. Laboratory Studies: No new laboratory studies. X-ray/imaging: No new x-rays or imaging. Medications: Medications have been reviewed and remained unchanged. Progress Made With Physical And Occupational Therapy: Today with physical therapy, she did ambulate 750 feet, 555 feet, and 50 feet along with 250 feet independently. She was up and down 20 steps with bilateral handrails independently. She is doing excellent with physical and occupational therapy. With occupational therapy, supervision for bed mobility. She did independent toilet hygiene, doing v annmarie well. Assessment: Ms. Carter is an 83-year-old patient in rehabilitation unit with a right femoral neck fra cture. She is doing excellent in terms of recovery. She still has mild decreased mobility and decre ased physical functioning, but is doing excellent. She does have muscle spasms some at night, and mi ld constipation, and hypertension. Plan: She will continue with physical and occupational therapy. Continue all comorbid condition med ications as needed. She is making great progress and likely it is recommended that she have outpatie nt therapy, but because of the difficulty getting to therapy, will have Home Health and then later go to outpatient therapy. CHRISTOPH/SARABJIT Voice ID: [id number] Report ID: [id number]
--- NOTE | 2024-07-05 18:12 | P.RH.PN ---
Estimated Length of Stay: 9 Expected Discharge Date: 07/07/24 Discharge Disposition Plan: Home Family Support: Yes Receiving Dock Checker Goal: Mobility, Transfers, Self Care Vital Signs: Last Vital Signs Temp 97.7 F 07/05/24 07:49 Pulse 73 07/05/24 08:57 Resp 16 07/05/24 07:49 BP 160/71 H 07/05/24 08:57 Pulse Ox 96 07/05/24 07:49 Laboratory: Laboratory Last Values WBC 5.70 thou/uL (4.3-10.9) 07/01/24 05:33 RBC 3.29 M/uL (3.86-4.86) L 07/01/24 05:33 Hgb 9.8 g/dL (12.0-15.0) L 07/01/24 05:33 Hct 29.3 % (36.0-45.0) L 07/01/24 05:33 MCV 89.1 fL (80-100) 07/01/24 05:33 MCH 29.7 pg (27.0-35.0) 07/01/24 05:33 MCHC 33.3 g/dL (32.0-36.0) 07/01/24 05:33 RDW 13.9 % (12.1-15.2) 07/01/24 05:33 Plt Count 287 thou/uL (152-406) 07/01/24 05:33 MPV 7.6 fL (7.6-11.3) 07/01/24 05:33 Neutrophils % 68.2 % (41.7-73.7) 07/01/24 05:33 Lymphocytes % 19.8 % (15.3-44.8) 07/01/24 05:33 Monocytes % 9.8 % (3.3-12.3) 07/01/24 05:33 Eosinophils % 1.4 % (0-4.4) 07/01/24 05:33 Basophils % 0.8 % (0-1.3) 07/01/24 05:33 Absolute Neutrophils 3.9 K/uL (1.8-8.0) 07/01/24 05:33 Absolute Lymphocytes 1.1 K/uL (0.7-4.9) 07/01/24 05:33 Absolute Monocytes 0.6 K/uL (0.1-1.3) 07/01/24 05:33 Absolute Eosinophils 0.1 K/uL (0-0.5) 07/01/24 05:33 Absolute Basophils 0.0 K/uL (0-0.5) 07/01/24 05:33 Sodium 138 mEq/L (136-145) 07/01/24 05:33 Potassium 3.6 mEq/L (3.5-5.1) 07/01/24 05:33 Chloride 106 mEq/L (98-107) 07/01/24 05:33 Carbon Dioxide 28 mEq/L (21-32) 07/01/24 05:33 Anion Gap 7.6 mEq/L (5.0-15.0) 07/01/24 05:33 BUN 14 mg/dL (7-18) 07/01/24 05:33 Creatinine 0.65 mg/dL (0.55-1.02) 07/01/24 05:33 Est GFR (CKD-EPI) 88 ml/min (=/>90) L 07/01/24 05:33 Glucose 104 mg/dL (74-106) 07/01/24 05:33 Calcium 9.5 mg/dL (8.5-10.1) 07/01/24 05:33 Magnesium 2.0 mg/dL (1.6-2.4) 07/01/24 05:33 Albumin 2.5 g/dL (3.4-5.0) L 07/01/24 05:33 Prealbumin 9.8 mg/dL (20-40) L 07/01/24 05:33 Urine Color Light-yellow (Yellow) 07/01/24 20:10 Urine Clarity Extremely turbid (Clear) H 07/01/24 20:10 Urine pH 7.5 (5.0-7.0) H 07/01/24 20:10 Ur Specific [place] 1.010 (1.005-1.030) 07/01/24 20:10 Glucose (UA)(Auto) Negative (Negative) 07/01/24 20:10 Urine Ketones Negative (Negative) 07/01/24 20:10 Urine Blood Trace (Negative) H 07/01/24 20:10 Urine Nitrite Negative (Negative) 07/01/24 20:10 Urine Bilirubin Negative (Negative) 07/01/24 20:10 Urine Urobilinogen Normal (Normal) 07/01/24 20:10 Ur Leukocyte Esterase 250 Isabel/uL (Negative) H 07/01/24 20:10 Urine RBC 5-10 /HPF (None Seen) H 07/01/24 20:10 Urine WBC >50 /HPF (<5) H 07/01/24 20:10 Ur Squamous Epith Cells 5-10 /HPF (None Seen) 07/01/24 20:10 U Non-Squamous Epi Cells <5 /HPF (None Seen) 07/01/24 20:10 Unidentified Crystals Few /HPF (None Seen) 07/01/24 20:10 Urine Bacteria <20 /HPF (<20) 07/01/24 20:10 Urine Mucus Slight /HPF (None Seen) 07/01/24 20:10 Urine Yeast (Budding) Occasional /HPF (None Seen) H 07/01/24 20:10 Urine Culture Reflexed Reflexed 07/01/24 20:10 Urine Total Protein Trace (Negative) H 07/01/24 20:10 Weight: 110 lb Wound Present: No Closed Surgical Incision Present: Yes Physician Update: Her labs were reviewed and are stable. She has made excellent progress with physical and occupational therapy. She is independent ambulating 750' with a rolling walker, and mobilized a wheelchair 250' independently. She is up and down 15 steps independently. Her upper and lower body dressing is independent. Her ADLs are independent. She will be discharged home with outpatient physical therapy and follow up with orthopedic surgeon after discharge. Summary: Patient's care plan and frame repairer goals have been reviewed and revised as necessary. Please see the Rehabilitation Signature page for all necessary signatures.
--- NOTE | 2024-07-06 00:36 | PN ---
Date of Progress Note: 07/05/2024 Time Of Service: 1:35 p.m. Subjective: Ms. Carter is doing excellent. She is ambulating well around the unit. Denies any pain. She is very happy with therapy, soon to be discharged. Objective: Denies any fevers, chills, nausea, vomiting, myalgias, arthralgias. The right hip fractu re site shows no significant pain. Physical Examination: Vital Signs: Blood pressure 140/65, pulse 85, respiratory rate 18, temperature 98, oxygen saturation 98 as well. General: Ms. Carter is very happy, smiling. Ambulated around the unit. HEENT: She is normocephalic , atraumatic. Sclerae anicteric. Oropharynx pink and moist. Neck: Supple. Chest: Clear. Extremities: She has no significant edema, clubbing, or cyanosis in the right lower extremity, where she has the right femoral neck fracture. Laboratory Studies: No new laboratory studies. X-ray/imaging: No new x-rays or imaging. Medications: Have been reviewed and are unchanged. Progress Made With Physical And Occupational Therapy: Today, with physical therapy, she ambulated 75 0 feet twice, 550 feet once, and 125 feet with independence. She used a Rollator 500 feet independently, up and do wn 25 steps with bilateral handrails also independently. Byi-gq-kpzca transfers done independently. She did in an excellent manner with occupational therapy as well, independent with bed mobility, amb ulated from room to shower. Completed bathing, upper and lower body dressing, footwear, all independ ently. Toilet hygiene, all independently. Assessment And Plan: Ms. Carter is an 83-year-old patient who did excellent with physical and occupat ional therapy, all independent with all activities. She is ready to go home and she will have outpat ient physical therapy to continue her great progress. She still has mild risk of deep venous thrombo sis. She has hypertension, constipation, and some insomnia. In terms of her plan, continue again with physical and occupational therapy, and then continue with c omorbid condition medications. Discharge and follow up with outpatient physical therapy. CHRISTOPH/SARABJIT Voice ID: [id number] Report ID: [id number]
[2024-07-06 06:36] LABS: Absolute Basophils 0.1 K/uL (0-0.5); Absolute Eosinophils 0.2 K/uL (0-0.5); Absolute Lymphocytes (CBC) 2.3 K/uL (0.7-4.9); Absolute Monocytes 0.5 K/uL (0.1-1.3); Absolute Neutrophil 3.3 K/uL (1.8-8.0); Basophils % 1.3 % (0-1.3); Eosinophils % 2.4 % (0-4.4); Hematocrit 30.8 % (36.0-45.0); Hemoglobin 10.3 g/dL (12.0-15.0); Lymphocytes % 36.2 % (15.3-44.8); MCH 29.4 pg (27.0-35.0); MCHC 33.4 g/dL (32.0-36.0); MCV 87.9 fL (80-100); MPV 7.4 fL (7.6-11.3); Monocytes % 8.4 % (3.3-12.3); Neutrophils % 51.7 % (41.7-73.7); Platelets 400 thou/uL (152-406); Red Cell Distribution Width 13.8 % (12.1-15.2)
[2024-07-06 06:40] VITALS: BP 148/76; TEMP 97.2
[2024-07-06 07:11] LABS: Albumin 2.6 g/dL (3.4-5.0); Anion Gap 7.5 mEq/L (5.0-15.0); Magnesium 2.2 mg/dL (1.6-2.4); Potassium 3.5 mEq/L (3.5-5.1); Prealbumin 13.2 mg/dL (20-40)
[2024-07-06 08:23] LABS: Blood Morphology Comment NOT SEEN (NOT SEEN); Platelet Estimate ADEQ; Platelets Clumped FEW; White Blood Cell Scan OK (OK)
== END 2024-07-06 10:20 | disposition home or self-care (01) | DRG 561 ==
LOC: 5TH 09:25
PROVIDERS: ADMIT Psychiatry & Neurology Neurology with Special Qualifications in Child Neurology; ATTEND Psychiatry & Neurology Neurology with Special Qualifications in Child Neurology
DX: S72.001D Fracture of unspecified part of neck of right femur, subsequent encounter for closed fracture with routine healing (principal); K59.00 Constipation, unspecified; M62.838 Other muscle spasm; I10 Essential (primary) hypertension; R11.0 Nausea
CPT/HCPCS: 36415; 80048; 81001; 82040; 83735; 84134; 85025; 87086; 87088; 97110; 97116; 97163; 97165; 97530; 97542

== ENCOUNTER 2024-12-14 18:22 | Inpatient (IN) | payer OTHER ==
[2024-12-14] MEDS ORDERED: NA CHLORIDE 0.9% 1,000 ML ONE (19:05)
--- NOTE | 2024-12-14 19:06 | RAD REPORT ---
EXAMINATION: ONE VIEW CHEST XR CLINICAL INDICATION: FEVER TECHNIQUE: Frontal chest projection is submitted. Examination is limited by patient positioning and t echnique. COMPARISON: 11/25/2024 FINDINGS: Bilateral interstitial prominence is seen which may be related to chronic bronchitis or COPD. No foca l infiltrate typical of pneumonia. The heart is upper limit of normal in size. No displaced fractures identified. Mildly tortuous thoracic aorta.
[2024-12-14 19:18] LABS: Influenza A Ag Negative; Influenza B Ag Negative; SARS-CoV-2 Antigen Rapid Res Negative (Negative)
[2024-12-14] MEDS ORDERED: CEFTRIAXONE 1000 MG/VIAL ONE (19:24)
[2024-12-14] MEDS ORDERED: NA CHLORIDE 0.9% 500 ML ONE (19:25)
[2024-12-14] MEDS ORDERED: IBUPROFEN 400 MG TAB ONE (19:25)
[2024-12-14 19:26] LABS: Sqamous Epithelial None Seen /HPF (None Seen); Urine Microscopic Reflex YN NO UMIC; Urine WBC Clump Many /HPF (None Seen)
[2024-12-14 19:29] LABS: Absolute Lymphocytes (CBC) 0.2 K/uL (0.7-4.9); Hematocrit 34.5 % (36.0-45.0); Hemoglobin 11.5 g/dL (12.0-15.0); MCH 27.9 pg (27.0-35.0); MCHC 33.4 g/dL (32.0-36.0); MCV 83.7 fL (80-100); MPV 8.0 fL (7.6-11.3); Nucleated RBC Absolute Count 0.0 (0-0); Nucleated Red Blood Cells % 0.0 % (0-0); RBC Red Blood Cell Count 4.12 M/uL (3.86-4.86); White Blood Count 6.00 thou/uL (4.3-10.9)
[2024-12-14 19:33] LABS: Urine Culture Reflex Order REFLEXED
[2024-12-14 19:38] LABS: PT Prothrombin Time 13.3 SECONDS (10-13.0); PTT, Activated Partial Thromb 27.1 SECONDS (27.2-37.4); Protime INR 1.18
[2024-12-14 19:52] LABS: ALT/SGPT 15.0 U/L (13-56); AST/SGOT 15.0 U/L (15-37); Albumin 3.5 g/dL (3.4-5.0); Albumin/Globulin Ratio 0.9 (1.1-1.8); Alkaline Phosphatase 83.0 U/L (45-117); Anion Gap 10.7 mEq/L (5.0-15.0); BUN Blood Urea Nitrogen 17.0 mg/dL (7-18); Globulin 4.1 g/dL (2.3-3.5); Glucose Level 106.0 mg/dL (74-106); NT PRO-BNP 942.0 pg/mL (<450); Potassium 3.7 mEq/L (3.5-5.1); Troponin High Sensitivity 16.2 pg/mL (<58.9)
--- NOTE | 2024-12-14 20:03 | ER ---
Nurse's Notes [facility] Name: Laurita Cooper Age: 83 yrs Sex: Female : 1940 Arrival Date: 12/14/2024 Time: 18:22 Bed 23 Private MD: Diagnosis: UTI/ Urinary tract infection, site not specified;Fever, unspecified;Acute bronchitis, unspecified Presentation: 12/14 18:22 Chief complaint: Pt's states "she just started getting shaky and getting aa5 nauseated". Pt noted to be shaking uncontrollably during triage. 18:22 Acuity: ALMITA 2 aa5 18:22 Onset of symptoms was December 14, 2024. aa5 18:22 Coronavirus screen: chills. Ebola Screen: Patient denies travel to an Ebola-affected [facility] area in the 21 days before illness onset. Initial Sepsis Screen: Does the patient meet any 2 criteria? RR > 20 per min. Temp <36.0*C (96.8*F)) or > 38.3*C (100.9*F). HR > 90 bpm. Does the patient have a suspected source of infection?. Risk Assessment: Do you want to hurt yourself or someone else? Patient reports no desire to harm self or others. 18:22 Method Of Arrival: Wheelchair aa5 Historical: - Allergies: 18:26 No Known Allergies; aa5 - PMHx: 18:26 Hypertensive disorder; urinary retention (Unknown); aa5 - PSHx: 18:26 Bladder; aa5 - Immunization history:: Adult Immunizations up to date. - Infectious Disease History:: Denies. - Social history:: Smoking status: Reported history of juuling and/or vaping. Screenin:35 [facility] ED Fall Risk Assessment (Adult) History of falling in the last 3 months, db including since admission No falls in past 3 months (0 pts) Confusion or Disorientation No (0 pts) Intoxicated or Sedated No (0 pts) Impaired Gait No (0 pts) Mobility Assist Device Used No (0 pt) Altered Elimination Yes (1 pt) Score/Fall Risk Level 0 - 2 = Low Risk Oriented to surroundings, Maintained a safe environment. Abuse screen: Denies threats or abuse. Denies injuries from another. Nutritional screening: No deficits noted. Tuberculosis screening: No symptoms or risk factors identified. 20:09 [facility] ED Fall Risk Assessment (Adult) History of falling in the last 3 months, tb4 including since admission No falls in past 3 months (0 pts) Confusion or Disorientation No (0 pts) Intoxicated or Sedated No (0 pts) Impaired Gait No (0 pts) Mobility Assist Device Used No (0 pt) Altered Elimination Yes (1 pt) Score/Fall Risk Level 0 - 2 = Low Risk Oriented to surroundings, Maintained a safe environment. Abuse screen: Denies threats or abuse. Denies injuries from another. Nutritional screening: No deficits noted. Tuberculosis screening: No symptoms or risk factors identified. Assessment: 18:35 Reassessment: Patient appears in no apparent distress at this time. Patient and/or db family updated on plan of care and expected duration. Pain level reassessed. Patient is alert, oriented x 3, equal unlabored respirations, skin warm/dry/pink. General: Appears in no apparent distress. comfortable, Behavior is calm, cooperative. Neuro: Level of Consciousness is awake, alert, obeys commands, Oriented to person, place, time, situation. 20:02 Reassessment: Patient in bed no s/s of distress noted, denies pain 0/10, at tb4 bedside Patient denies pain at this time. Patient states feeling better. General: Appears in no apparent distress. comfortable, Behavior is calm, cooperative. Pain: Denies pain. Neuro: No deficits noted. Level of Consciousness is awake, alert, obeys commands, Oriented to person, place, time, situation. Respiratory: No deficits noted. Airway is patent Trachea midline Respiratory effort is even, unlabored, Respiratory pattern is regular, symmetrical. GI: No signs and/or symptoms were reported involving the gastrointestinal system. : Carias in place 16 [place] carias Reports inability to void, has to cath herself every night. EENT: No deficits noted. No signs and/or symptoms were reported regarding the EENT system. Derm: No signs and/or symptoms reported regarding the dermatologic system. Skin is intact. Vital Signs: 18:22 BP 172 / 117; Pulse 128; Resp 30 S; Temp 103.6(O); Pulse Ox 97% on R/A; aa5 18:43 Weight 49.9 kg; Height 5 ft. 3 in. ; db 19:00 BP 164 / 85; Pulse 106; Resp 28; Pulse Ox 95% ; db 20:02 BP 157 / 79; Pulse 99; Resp 18; Temp 97.6; Pulse Ox 100% on R/A; Weight 49.9 kg; Height tb4 5 ft. 3 in. ; Pain 0/10; 21:00 BP 146 / 89; Pulse 76; Resp 17; Pulse Ox 99% on R/A; Pain 0/10; tb4 22:08 BP 152 / 90; Pulse 19; Resp 18; Pulse Ox 100% on R/A; Pain 0/10; tb4 23:00 BP 134 / 72; Pulse 88; Resp 19; Temp 97.6(O); Pulse Ox 100% on R/A; Pain 0/10; tb4 20:02 Body Mass Index 19.49 (49.90 kg, 160.02 cm) tb4 20:02 Pain Scale: Adult tb4 21:00 Pain Scale: Adult tb4 22:08 Pain Scale: Adult tb4 23:00 Pain Scale: Adult tb4 ED Course: 18:22 Arm band placed on Patient placed in an exam room, on a stretcher. aa5 18:25 Patient arrived in ED. db 18:27 Triage completed. aa5 18:33 Ganesh Coombs FNP-C is PHCP. dr5 18:33 Tien Mckoy DO is Attending Physician. dr5 18:35 Patient has correct armband on for positive identification. Bed in low position. Call db light in reach. Side rails up X2. Client placed on continuous cardiac and pulse oximetry monitoring. NIBP monitoring applied. 4th grade teacher on. Pulse ox on. NIBP on. Warm blanket given. Pillow given. 18:42 Jessy Dunham, RN is Primary Nurse. db 18:45 Urine collected: Carias catheter specimen, cloudy, EKG done. Carias cath inserted, using db sterile technique, 16 Fr., by ED staff, balloon inflated, urine specimen collected. Patient tolerated well. 18:55 Chest Single View XRAY In Process Unspecified. EDMS 18:58 COVID-19 Ag + Flu A+B Ag Sent. dr5 18:58 UA Rfx Venkata Cult if indicated Sent. dr5 19:00 Initial lab(s) drawn, by me, sent to lab. First set of blood cultures drawn. Missed db attempt(s): 20 gauge in left forearm. Bleeding controlled, band aid applied, catheter tip intact. 19:13 Lab(s) recollected, by me, sent to lab. Second set of blood cultures drawn by me. db Inserted saline lock: 20 gauge in right antecubital area, using aseptic technique. Blood collected. Flushed with 10 mL NS. 20:02 Shahid Lemus, RN is Hospitalizing Provider. dr5 Administered Medications: 19:43 Drug: Rocephin IV 1 grams IV at per protocol once; Given slow IV push per pharmacy tb4 instructions Route: IV; Rate: per protocol; Site: right antecubital; 21:29 Follow up: Response: No adverse reaction; IV Status: Completed infusion tb4 19:44 Drug: Ibuprofen PO 800 mg PO once Route: PO; tb4 21:29 Follow up: Urine output 1000 ml; Response: No adverse reaction; Temperature is decreasedtb4 19:44 Drug: NS 0.9% IV (30 ml/kg) 30 ml/kg IV at bolus once; Sepsis Protocol; to be given as tb4 a bolus over 90 minutes Route: IV; Rate: bolus; Site: right antecubital; 23:13 Follow up: Response: No adverse reaction; IV Status: Completed infusion tb4 Medication: 20:02 VIS not applicable for this client. tb4 Output: 21:29 Urine: 1000ml; Total: 1000ml. tb4 Outcome: 20:03 Decision to Hospitalize by Provider. dr5 23:14 Patient left the ED. tb4 Signatures: Dispatcher [employer] EDGA Radha Henning RN RN aa5 Jessy Dunham RN RN Ganesh Nguyen, FINISH MOLDER-C FINISH MOLDER-[facility]5 Jyoti Winkler RN RN tb4
--- NOTE | 2024-12-14 20:03 | EDPHYS ---
Physician Documentation [facility] Name: Laurita Cooper Age: 83 yrs Sex: Female : 1940 Arrival Date: 12/14/2024 Time: 18:22 Bed 23 Private MD: ED Physician Tien Mckoy HPI: 12/14 18:59 This 83 yrs old Female presents to ER via Wheelchair with complaints of Fever.dr5 18:59 The patient reports fever. Onset: The symptoms/episode began/occurred acutely. Patient dr5 is an 83-year-old female with history of hypertension and urinary retention coming in with fever that started today. at bedside reports that they were out shopping today without any issues. Patient came in by triage with temperature of 103.6. Immediately ordered septic workup. I put in Cummings. Urine returned cloudy concerning for urinary tract infection. Will obtain blood cultures and urine and give IV antibiotics and fluids.. Historical: - Allergies: 18:26 No Known Allergies; aa5 - PMHx: 18:26 Hypertensive disorder; urinary retention (Unknown); aa5 - PSHx: 18:26 Bladder; aa5 - Immunization history:: Adult Immunizations up to date. - Infectious Disease History:: Denies. - Social history:: Smoking status: Reported history of juuling and/or vaping. ROS: 18:59 Constitutional: as per hpi dr5 Exam: 18:59 Constitutional: This is a well developed, well nourished patient who is awake, alert, dr5 and in no acute distress. Head/Face: Normocephalic, atraumatic. Eyes: Pupils equal round and reactive to light, extra-ocular motions intact. Lids and lashes normal. Conjunctiva and sclera are non-icteric and not injected. Cornea within normal limits. Periorbital areas with no swelling, redness, or edema. Neck: Trachea midline, no thyromegaly or masses palpated, and no cervical lymphadenopathy. Supple, full range of motion without nuchal rigidity, or vertebral point tenderness. No Meningismus. Chest/axilla: Normal chest wall appearance and motion. Nontender with no deformity. No lesions are appreciated. Cardiovascular: Regular rate and rhythm with a normal S1 and S2. Normal PMI, no JVD. No pulse deficits. Respiratory: Lungs have equal breath sounds bilaterally, clear to auscultation. No rales, rhonchi or wheezes noted. No increased work of breathing, no retractions or nasal flaring. Back: No spinal tenderness. No costovertebral tenderness. Full range of motion. MS/ Extremity: Pulses equal, no cyanosis. Neurovascular intact. Full, normal range of motion. Neuro: Awake and alert, GCS 15, oriented to person, place, time, and situation. Cranial nerves II-XII grossly intact. Motor strength 5/5 in all extremities. Sensory grossly intact. Cerebellar exam normal. Normal gait. 18:59 Skin: Hot to the touch. Vital Signs: 18:22 BP 172 / 117; Pulse 128; Resp 30 S; Temp 103.6(O); Pulse Ox 97% on R/A; aa5 18:43 Weight 49.9 kg; Height 5 ft. 3 in. ; db 19:00 BP 164 / 85; Pulse 106; Resp 28; Pulse Ox 95% ; db 20:02 BP 157 / 79; Pulse 99; Resp 18; Temp 97.6; Pulse Ox 100% on R/A; Weight 49.9 kg; Height tb4 5 ft. 3 in. ; Pain 0/10; 21:00 BP 146 / 89; Pulse 76; Resp 17; Pulse Ox 99% on R/A; Pain 0/10; tb4 22:08 BP 152 / 90; Pulse 19; Resp 18; Pulse Ox 100% on R/A; Pain 0/10; tb4 23:00 BP 134 / 72; Pulse 88; Resp 19; Temp 97.6(O); Pulse Ox 100% on R/A; Pain 0/10; tb4 20:02 Body Mass Index 19.49 (49.90 kg, 160.02 cm) tb4 20:02 Pain Scale: Adult tb4 21:00 Pain Scale: Adult tb4 22:08 Pain Scale: Adult tb4 23:00 Pain Scale: Adult tb4 Procedures: 18:59 Cummings cath inserted by myself - 18 Fr. Returned cloudy urine. Urine output = [address]'s. dr5 Patient tolerated well. MDM: 18:36 Medical Screening Exam initiated dr5 20:03 Differential diagnosis: viral Infection, bacterial infection, URI, bronchitis, UTI. dr5 Data reviewed: vital signs, nurses notes, lab test result(s), cardiac enzymes, troponin i, CBC, white blood cell count, hemoglobin, hematocrit, platelets, electrolytes, sodium, potassium, chloride, serum bicarbonate, BUN, creatinine, serum glucose, urinalysis, bacteruria, pyuria, EKG, radiologic studies, plain films. Consideration of Admission/Observation Patient was admitted/placed on observation. Management of patient was discussed with the following: Hospitalist: Dr. Lemus. I considered the following discharge prescriptions or medication management in the emergency department I discussed and recommended Over The Counter medications, Medications were administered in the Emergency Department. See MAR. Historians other than the Patient: Spouse/Significant Other: at bedside. Care significantly affected by the following chronic conditions: Hypertension. Care significantly affected by the following Social Determinants of Health: Poor access to healthcare and/or lack of insurance, Poor access to transportation, Problems related to employment. Counseling: I had a detailed discussion with the patient and/or guardian regarding the historical points, exam findings, and any diagnostic results supporting the discharge/admit diagnosis, the presence of at least one elevated blood pressure reading (>120/80) during this emergency department visit, lab results, radiology results, the need for further work-up and treatment in the hospital. Medication response: Motrin / Rocephin. Response to treatment: the patient's symptoms have markedly improved after treatment. ED course: Patient found to have gross pyuria on Cummings. Rocephin IV given to patient. Lactic acid reviewed. Will admit patient for IV abx.. 12/14 18:34 Order name: BNP; Complete Time: 19:53 [facility] 12/14 18:34 Order name: Blood Culture Adult (2) [facility] 12/14 18:34 Order name: CBC with Diff; Complete Time: 20:27 [facility] 12/14 18:34 Order name: CMP; Complete Time: 19:53 [facility] 12/14 18:34 Order name: Lactate w/ 2H reflex if indic.; Complete Time: 19:50 [facility] 12/14 18:34 Order name: Protime (+inr); Complete Time: 19:39 [facility] 12/14 18:34 Order name: Ptt, Activated; Complete Time: 19:39 [facility] 12/14 18:34 Order name: Troponin HS; Complete Time: 19:53 [facility] 12/14 18:34 Order name: UA Rfx Venkata Cult if indicated; Complete Time: 19:35 dr5 12/14 18:34 Order name: COVID-19 Ag + Flu A+B Ag; Complete Time: 19:20 dr5 12/14 19:35 Order name: Manual Differential; Complete Time: 20:27 EDMS 12/14 19:35 Order name: Urine Culture EDMS 12/14 21:25 Order name: UA Rfx Venkata Cult if indicated EDMS 12/14 21:25 Order name: CBC with Automated Diff EDMS 12/14 21:25 Order name: CBC with Automated Diff EDMS 12/14 21:25 Order name: CBC with Automated Diff EDMS 12/14 21:25 Order name: CBC with Automated Diff EDMS 12/14 21:25 Order name: Comprehensive Metabolic Panel EDMS 12/14 21:25 Order name: Comprehensive Metabolic Panel EDMS 12/14 21:25 Order name: Comprehensive Metabolic Panel EDMS 12/14 21:25 Order name: Comprehensive Metabolic Panel EDMS 12/14 21:25 Order name: Magnesium EDMS 12/14 21:25 Order name: Magnesium EDMS 12/14 21:25 Order name: Magnesium EDMS 12/14 21:25 Order name: Magnesium EDMS 12/14 18:34 Order name: Chest Single View XRAY; Complete Time: 19:20 12/14 18:34 Order name: EKG; Complete Time: 18:35 12/14 18:34 Order name: Accucheck; Complete Time: 19:22 12/14 18:34 Order name: Cardiac monitoring; Complete Time: 19:22 12/14 18:34 Order name: Cath; Complete Time: 19:22 12/14 18:34 Order name: EKG - Nurse/Tech; Complete Time: 19:21 12/14 18:34 Order name: IV Saline Lock - Large Bore; Complete Time: 19:21 12/14 18:34 Order name: Labs collected and sent; Complete Time: 19:21 12/14 18:34 Order name: O2 Per Protocol; Complete Time: 19:12/14 18:34 Order name: O2 Sat Monitoring; Complete Time: 19:21 12/14 18:34 Order name: Vital Signs; Complete Time: 19:21 12/14 18:40 Order name: Cummings; Complete Time: 19:12/14 19:15 Order name: Misc. Order: recollect all labs, hemolyzed; Complete Time: 19:21 vk EC:24 Rate is 94 beats/min. Rhythm is regular. QRS [place] is Normal. [place] interval is normal at dr5 134 msec. QRS interval is normal at 130 msec. QT interval is normal at 378 msec. Clinical impression: Normal ECG, No evidence of ischemia, and RBBB. Administered Medications: 19:43 Drug: Rocephin IV 1 grams IV at per protocol once; Given slow IV push per pharmacy tb4 instructions Route: IV; Rate: per protocol; Site: right antecubital; 21:29 Follow up: Response: No adverse reaction; IV Status: Completed infusion tb4 19:44 Drug: Ibuprofen PO 800 mg PO once Route: PO; tb4 21:29 Follow up: Urine output 1000 ml; Response: No adverse reaction; Temperature is decreasedtb4 19:44 Drug: NS 0.9% IV (30 ml/kg) 30 ml/kg IV at bolus once; Sepsis Protocol; to be given as tb4 a bolus over 90 minutes Route: IV; Rate: bolus; Site: right antecubital; 23:13 Follow up: Response: No adverse reaction; IV Status: Completed infusion tb4 Disposition: 19:05 I was immediately available on-site in the Emergency Department for consultation in the ms3 care of the patient. Disposition Summary: 12/14/24 20:03 Hospitalization Ordered Notes: Hospitalization Status: Inpatient Admission dr5 Provider: Shahid Lemus Location: Telemetry/MedSurg (Inpatient) dr5 Condition: Stable dr5 Problem: new dr5 Symptoms: have worsened dr5 Bed/Room Type: Standard dr5 Room Assignment: 220(12/14/24 21:35) vk Diagnosis - UTI/ Urinary tract infection, site not specified dr5 - Fever, unspecified dr5 - Acute bronchitis, unspecified dr5 Forms: - Medication Reconciliation Form dr5 - SBAR form dr5 - Leadership Thank You Letter dr5 Signatures: Dispatcher [employer] EDMS Radha Henning, RN RN aa5 Tien Mckoy DO DO ms3 Gwen Bennett Dustin, HOBBING PRESS OPERATOR-C HOBBING PRESS OPERATOR-Cdr5 Jyoti Winkler RN RN tb4 Corrections: (The following items were deleted from the chart) 18:35 18:35 PROBNP+C.LAB.BRZ ordered. EDMS EDMS 18:35 18:35 BLOOD CULTURE*+BA.LAB.BRZ ordered. EDMS EDMS 18:35 18:35 CBC+H.LAB.BRZ ordered. EDMS EDMS 18:35 18:35 COMPREHENSIVE METABOLIC PANEL+C.LAB.BRZ ordered. EDMS EDMS 18:35 18:35 LACTATE+C.LAB.BRZ ordered. EDMS EDMS 18:35 18:35 PROTIME (+INR)+COAG.LAB.BRZ ordered. EDMS EDMS 18:35 18:35 PTT, ACTIVATED+COAG.LAB.BRZ ordered. EDMS EDMS 18:35 18:35 Troponin High Sensitivity+C.LAB.BRZ ordered. EDMS EDMS 18:35 18:35 UA Rfx Venkata Cult if indicated+U.LAB.BRZ ordered. EDMS EDMS 18:35 18:35 COVID-19 Ag + Flu A+B Ag+I.LAB.BRZ ordered. EDMS EDMS 21:35 20:03 dr5 vk
[2024-12-14 20:23] LABS: Blood Morphology Comment NOT SEEN (NOT SEEN); Differential Total Cells Count 100; Segmented Neutrophils 98 % (40-80)
[2024-12-14] MEDS: NA CHLORIDE 0.9% 1,000 ML IV SCH (23:34)
[2024-12-15 02:56] VITALS: O2SAT 100
[2024-12-15 05:46] LABS: Absolute Lymphocytes (CBC) 1.1 K/uL (0.7-4.9); Hematocrit 30.0 % (36.0-45.0); Hemoglobin 10.0 g/dL (12.0-15.0); MCH 28.2 pg (27.0-35.0); MCHC 33.5 g/dL (32.0-36.0); MCV 84.3 fL (80-100); MPV 8.2 fL (7.6-11.3); Nucleated RBC Absolute Count 0.0 (0-0); Nucleated Red Blood Cells % 0.0 % (0-0); RBC Red Blood Cell Count 3.56 M/uL (3.86-4.86); White Blood Count 11.20 thou/uL (4.3-10.9)
--- NOTE | 2024-12-15 05:56 | P.HP ---
Certification for Inpatient Patient admitted to: Inpatient With expected LOS: >2 Midnights Patient will require the following post-hospital care: None Practitioner: I am a practitioner with admitting privileges, knowledge of patient current condition, hospital course, and medical plan of care. Services: Services provided to patient in accordance with Admission requirements found in Title 42 Section 412.3 of the Code of Federal Regulations Patient History Date of Service: 12/14/24 Reason for admission: UTI. History of Present Illness: Patient is a pleasant 83-year-old female with past medical history of hypertension, perforated ulcer, self straight cath every bedtime for the past 2 weeks, brought to the ER today complaining of chills, fever. Patient states around 3 PM today she started having severe chills, and subjective fever, states the chills progressively worsened which then prompted her to report to the ER. Patient denies of any associated chest pain, shortness of breath, abdominal pain, nausea or vomiting, headaches, or blurred vision. Patient states about 2 weeks ago she was instructed by her PCP to start doing straight cath at night before going to bed, because she was not able to empty her bladder before she goes to sleep. 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 moist/pink, Sclerae nonicteric Neck: Supple, 2+ carotid pulse no bruit, No LAD, Without JVD or thyroid abnormality Respiratory: Clear to auscultation bilaterally, Normal air movement Cardiovascular: No edema, Normal pulses, Regular rate/rhythm, Normal S1 S2, Abnormal S3, No gallops, No rubs, No murmurs Capillary refill: <2 Seconds Gastrointestinal: Normal bowel sounds, Soft and benign, Non-distended, W/out hepatomegaly, No ascites, No tenderness, No masses, No rebound, No guarding Musculoskeletal: No clubbing, No swelling, No contractures, No erythema, No tenderness, No warmth Integumentary: No rashes, No breakdown, No significant lesion, No tenderness/swelling, No erythema, No warmth, No cyanosis Neurological: Normal gait, Normal speech, Normal strength at 5/5 x4 extr, Normal tone, Sensation intact, Cranial nerves 3-12 intact, Normal reflexes 2+, Normal affect Lymphatics: No axilla or inguinal lymphadenopathy - Studies Laboratory Data (last 24 hrs) 12/14/24 12/14/24 12/14/24 19:13 19:13 19:13 WBC 6.00 Hgb 11.5 L Hct 34.5 L Plt Count 170 PT 13.3 H INR 1.18 APTT 27.1 L Sodium 136 Potassium 3.7 BUN 17 Creatinine 1.09 H Glucose 106 Total Bilirubin 0.7 AST 15 ALT 15 Alkaline Phosphatase 83 Female Exam - Breasts Breasts: Normal configuration Assessment and Plan - Plan Patient admitted to inpatient with diagnosis of UTI. (1)UTI. -Rocephin 1 g IV daily. -Order for urine culture. -IV NS at 50ml/ hr. Patient appears volume depleted on admission assessment with dry mucous membrane, poor skin turgor. (2)Chronic essential hypertension. -Continue losartan 50 mg p.o. daily. (3)Explained entire treatment plan to the patient, and present at bedside, solicit questions answered and voiced understanding. Discharge Plan: Home Plan to discharge in: 48 Hours - Advance Directives Does patient have a Living Will: No Does patient have a Durable POA for Healthcare: No - Code Status/Comfort Care Code Status Assessed: Yes Code Status: Full Code Critical Care: No Time Spent Managing Pts Care (In Minutes): 55
[2024-12-15 06:06] LABS: AST/SGOT 11 U/L (15-37); Albumin 2.7 g/dL (3.4-5.0); Albumin/Globulin Ratio 0.8 (1.1-1.8); Alkaline Phosphatase 65 U/L (45-117); Anion Gap 8.6 mEq/L (5.0-15.0); BUN Blood Urea Nitrogen 17 mg/dL (7-18); Globulin 3.4 g/dL (2.3-3.5); Glucose Level 104 mg/dL (74-106); Magnesium 1.9 mg/dL (1.6-2.4); Potassium 3.6 mEq/L (3.5-5.1)
[2024-12-15 06:07] LABS: ALT/SGPT < 14 U/L (13-56)
--- NOTE | 2024-12-15 07:51 | P.PN ---
Date of Service: 12/15/24 Subjective: states she has been having to straight cath at home for 2-3 weeks at home She was seen by PCP/Urology in October. Prescribed multiple antibiotics in last 1-2 months most recently keflex ~2 weeks ago 103.6 fever overnight feels better this morning Physical Exam: GEN: Alert, oriented, NAD CV: Regular rate and rhythm, no edema Pulm: Nonlabored respirations on room air, clear bilaterally ABD: soft, nontender, nondistended Cummings placed in ED Problem List: Fever secondary to suspected UTI Urinary retention Hypertension Hx perforated ulcer Fever secondary to suspected UTI Urinary retention on admission, presents with fever, chills, associated with uncontrollable generalized shaking and nausea She reports having to straight cath everyday for the last 2-4 weeks due to unable to empty her bladder She was seen by PCP/Urology in October. Prescribed multiple antibiotics in last 1-2 months Recent Urine culture from 11/25 grew E. Coli; Sensitivities reviewed. 103.6 fever overnight Cummings placed in ED Follow urine and blood cultures Given IV rocephin in ED last sensitivites are ok for rocephin, resistant to ancef - she was treated with keflex will change to levaquin continue IV hydration Hypertension Hx perforated ulcer confirm home meds, restart as appropriate resume home losartan VTE: Lovenox Code: Full Dispo: Home, 2-3 days Pending urine/blood cultures, afebrile > 24 hours Time Spent Managing Pts Care (In Minutes): 55
[2024-12-15] MEDS: ENOXAPARIN 40 MG/0.4 ML SQ SCH (08:36)
[2024-12-15] MEDS: LOSARTAN POTASSIUM 50 MG TABLET PO SCH (08:36)
[2024-12-15] MEDS: POTASSIUM CL SA 10 MEQ TAB PO ONE (13:49)
[2024-12-15] MEDS: Levofloxacin 750mg IV 750 MG/150 ML BAG IV SCH (17:04)
[2024-12-15] MEDS ORDERED: CEFTRIAXONE 1,000 MG in NA CHLORIDE 0.9% 50 ML IVPB SCH (19:00)
[2024-12-15] MEDS: ENSURE HIGH PROTEIN 237 ML CAN PO SCH (20:53)
[2024-12-15] MEDS: MELATONIN 3 MG TABLET PO PRN (20:53)
[2024-12-15] MEDS: HYDRALAZINE HCL 20 MG/ML VIAL IV PRN (20:53)
[2024-12-15 22:49] VITALS: BMI 19.5
[2024-12-15] MEDS: MELATONIN 3 MG TABLET PO ONE (22:58)
[2024-12-16] MEDS: ACETAMINOPHEN 325 MG TABLET PO PRN (01:24)
[2024-12-16] MEDS: DIPHENHYDRAMINE 25 MG TAB/CAP PO ONE ×2 (01:40→19:34)
[2024-12-16] MEDS: IBUPROFEN 400 MG TAB PO ONE (03:39)
[2024-12-16] MEDS: LOSARTAN POTASSIUM 50 MG TABLET PO SCH (05:39)
[2024-12-16] MEDS: LOSARTAN POTASSIUM 50 MG TABLET PO ONE (05:52)
[2024-12-16] MEDS ORDERED: LOSARTAN POTASSIUM 50 MG TABLET PO SCH ×3 (06:00→21:00)
[2024-12-16 06:17] LABS: Absolute Lymphocytes (CBC) 1.0 K/uL (0.7-4.9); Hematocrit 34.0 % (36.0-45.0); Hemoglobin 11.2 g/dL (12.0-15.0); MCH 27.9 pg (27.0-35.0); MCHC 32.9 g/dL (32.0-36.0); MCV 84.9 fL (80-100); MPV 9.2 fL (7.6-11.3); Nucleated RBC Absolute Count 0.0 (0-0); Nucleated Red Blood Cells % 0.0 % (0-0); RBC Red Blood Cell Count 4.01 M/uL (3.86-4.86); White Blood Count 9.90 thou/uL (4.3-10.9)
[2024-12-16 06:28] LABS: AST/SGOT 11 U/L (15-37); Albumin 3.1 g/dL (3.4-5.0); Albumin/Globulin Ratio 0.8 (1.1-1.8); Alkaline Phosphatase 76 U/L (45-117); Anion Gap 10.3 mEq/L (5.0-15.0); BUN Blood Urea Nitrogen 15 mg/dL (7-18); Globulin 4.1 g/dL (2.3-3.5); Glucose Level 115 mg/dL (74-106); Magnesium 1.7 mg/dL (1.6-2.4); Potassium 3.3 mEq/L (3.5-5.1)
[2024-12-16 06:47] LABS: ALT/SGPT < 14 U/L (13-56)
[2024-12-16] MEDS: POTASSIUM CL SA 10 MEQ TAB PO ONE (08:04)
[2024-12-16] MEDS: AMLODIPINE 10 MG TAB PO SCH (08:04)
[2024-12-16] MEDS: MAGNESIUM SULFATE 1 gm IVPB 1 GM/100 ML BAG IV ONE (08:04)
--- NOTE | 2024-12-16 09:46 | RAD REPORT ---
EXAMINATION: US RENAL CLINICAL INDICATION: Abdominal pain. Incomplete bladder emptying TECHNIQUE: Real-time ultrasonography of the kidneys performed. COMPARISON: 2023 CT. And August 2024 ultrasound FINDINGS: Right kidney measures 11 cm with a normal echotexture. Marked dilatation of an extrarenal pelvis is p resent. 1.5 cm right renal cyst. Left kidney measures 9 cm with normal echotexture. Several small left renal calculi are present. No h ydronephrosis. Extrarenal pelvis present. Cummings catheter is present within a collapsed bladder. IMPRESSION: Marked dilatation of a right extrarenal pelvis is without significant change from the prior CT. This may be a normal variant or be secondary to a UPJ stricture. If clinically indicated further evaluation with a nuclear medicine renal scan with Lasix could be obtained. Small nonobstructing left renal calculi
--- NOTE | 2024-12-16 09:49 | P.PN ---
Date of Service: 12/16/24 Subjective: feeling better today updated patient and family on plan and bacteremia results wanting to go home but understands she needs IV abx afebrile overnight ambulating Physical Exam: GEN: Alert, oriented, NAD CV: Regular rate and rhythm, no edema Pulm: Nonlabored respirations on room air, clear bilaterally ABD: soft, nontender, nondistended Cummings placed in ED Problem List: Fever secondary to suspected UTI E. coli Bacteremia Urinary retention Hypertension Hx perforated ulcer Fever secondary to suspected UTI E. coli Bacteremia Urinary retention on admission, presents with fever, chills, associated with uncontrollable generalized shaking and nausea She reports having to straight cath everyday for the last 2-4 weeks due to unable to empty her bladder She was seen by PCP/Urology in October. Prescribed multiple antibiotics in last 1-2 months Recent Urine culture from 11/25 grew E. Coli; Sensitivities reviewed. Cummings placed in ED Urine cx pending Blood cx positive for summers-sensitive E. coli in 1/2 bottle. 2nd bottle preliminary report noted Non-lactose fermenting gram negative bacilli continue IV levaquin for now (12/15-) Will adjust abx accordingly bases off sensitivities; Follow blood cultures consult ID Hypertension Hx perforated ulcer confirm home meds, restart as appropriate resume home losartan, amlodipine VTE: Lovenox Code: Full Dispo: Home, 2-3 days Pending urine cx, may need IV Abx vs PO Time Spent Managing Pts Care (In Minutes): 55
[2024-12-17] MEDS: LOSARTAN POTASSIUM 50 MG TABLET PO ONE (00:03)
[2024-12-17] MEDS: IBUPROFEN 600 MG TAB PO ONE (04:35)
[2024-12-17 06:05] LABS: Absolute Lymphocytes (CBC) 1.5 K/uL (0.7-4.9); Hematocrit 35.1 % (36.0-45.0); Hemoglobin 11.8 g/dL (12.0-15.0); MCH 28.3 pg (27.0-35.0); MCHC 33.7 g/dL (32.0-36.0); MCV 83.9 fL (80-100); MPV 9.1 fL (7.6-11.3); Nucleated RBC Absolute Count 0.0 (0-0); Nucleated Red Blood Cells % 0.1 % (0-0); RBC Red Blood Cell Count 4.19 M/uL (3.86-4.86); White Blood Count 7.00 thou/uL (4.3-10.9)
[2024-12-17 06:31] LABS: AST/SGOT 11 U/L (15-37); Albumin 3.4 g/dL (3.4-5.0); Albumin/Globulin Ratio 0.9 (1.1-1.8); Alkaline Phosphatase 76 U/L (45-117); Anion Gap 13.2 mEq/L (5.0-15.0); BUN Blood Urea Nitrogen 14 mg/dL (7-18); Globulin 4.0 g/dL (2.3-3.5); Glucose Level 116 mg/dL (74-106); Magnesium 1.7 mg/dL (1.6-2.4); Potassium 3.2 mEq/L (3.5-5.1)
[2024-12-17 06:36] LABS: ALT/SGPT < 14 U/L (13-56)
[2024-12-17] MEDS: LOSARTAN POTASSIUM 50 MG TABLET PO SCH (08:30)
[2024-12-17] MEDS: POTASSIUM CL SA 10 MEQ TAB PO ONE (08:31)
[2024-12-17] MEDS: CEFTRIAXONE 2,000 MG in NA CHLORIDE 0.9% 100 ML IV SCH (08:32)
[2024-12-17] MEDS: MORPHINE 2 MG/ML SYR IV ONE (09:14)
--- NOTE | 2024-12-17 10:51 | P.PN ---
Date of Service: 12/17/24 Subjective: reports severe headache overnight which has since improved this morning otherwise doing okay family updated afebrile Physical Exam: GEN: Alert, oriented, NAD CV: Regular rate and rhythm, no edema Pulm: Nonlabored respirations on room air, clear bilaterally ABD: soft, nontender, nondistended Carias placed in ED Problem List: Fever secondary to UTI E. coli Bacteremia Urinary retention Hypertension Hx perforated ulcer Fever secondary to UTI E. coli Bacteremia Urinary retention on admission, presents with fever, chills, associated with uncontrollable generalized shaking and nausea She reports having to straight cath everyday for the last 2-4 weeks due to unable to empty her bladder Carias placed in ED; Possibly voiding trial prior to discharge vs going home with carias Would benefit from outpatient urology follow up for further management Blood and urine cultures both growing E. coli; sensitivities reviewed IV levaquin switched to IV rocephin based on culture sensitivities Continue IV rocephin (12/17-) ID consult Needs midline/PICC for IV abx. Will need at least 1 week of IV abx. No oral options. Hypertension Hx perforated ulcer confirm home meds, restart as appropriate resume home losartan, amlodipine VTE: Lovenox Code: Full Dispo: Home with HH, 2-3 days Pending IV abx setup, ID recs Time Spent Managing Pts Care (In Minutes): 55
--- NOTE | 2024-12-17 18:59 | RAD REPORT ---
EXAM: Chest Single View HISTORY: 83 years Female PICC line placement COMPARISON: 12/14/2024 FINDINGS: LUNGS/PLEURA: The lungs are clear. No pleural effusions or pneumothorax. No pulmonary edema. CARDIAC/MEDIASTINUM: The cardiac silhouette is within normal limits. Emphysema. UPPER ABDOMEN: No significant abnormality. BONES: No acute abnormality. LINES/TUBES/OTHER: Left subclavian approach PICC with tip overlying the mid SVC. IMPRESSION: No evidence of acute cardiopulmonary disease. PICC in satisfactory position.
[2024-12-17] MEDS: Mupirocin NASAL 2 APPL/1 GM TUBE NAS SCH (20:19)
[2024-12-17] MEDS: DIPHENHYDRAMINE 25 MG TAB/CAP PO ONE (20:40)
[2024-12-18] MEDS: ACETAMIN/CAFFEINE/BUTALB TAB PO ONE ×2 (00:54→20:08)
[2024-12-18 05:09] LABS: Absolute Lymphocytes (CBC) 1.4 K/uL (0.7-4.9); Hematocrit 35.0 % (36.0-45.0); Hemoglobin 11.4 g/dL (12.0-15.0); MCH 27.6 pg (27.0-35.0); MCHC 32.6 g/dL (32.0-36.0); MCV 84.8 fL (80-100); MPV 8.3 fL (7.6-11.3); Nucleated RBC Absolute Count 0.0 (0-0); Nucleated Red Blood Cells % 0.1 % (0-0); RBC Red Blood Cell Count 4.13 M/uL (3.86-4.86); White Blood Count 5.50 thou/uL (4.3-10.9)
[2024-12-18 05:23] LABS: Anion Gap 5.7 mEq/L (5.0-15.0); BUN Blood Urea Nitrogen 15.0 mg/dL (7-18); Glucose Level 104.0 mg/dL (74-106); Magnesium 1.9 mg/dL (1.6-2.4); Potassium 3.7 mEq/L (3.5-5.1)
[2024-12-18] MEDS: POTASSIUM CL SA 10 MEQ TAB PO ONE (08:24)
--- NOTE | 2024-12-18 11:33 | P.PN ---
Date of Service: 12/18/24 Subjective: Doing okay BP elevated overnight in 190-200s otherwise no new issues afebrile Physical Exam: GEN: Alert, oriented, NAD CV: Regular rate and rhythm, no edema Pulm: Nonlabored respirations on room air, clear bilaterally ABD: soft, nontender, nondistended Carias placed in ED Problem List: Fever secondary to UTI E. coli Bacteremia Urinary retention Hypertension Hx perforated ulcer Fever secondary to UTI E. coli Bacteremia Urinary retention on admission, presents with fever, chills, associated with uncontrollable generalized shaking and nausea She reports having to straight cath everyday for the last 2-4 weeks due to unable to empty her bladder Carias placed in ED; Possibly voiding trial prior to discharge vs going home with carias Would benefit from outpatient urology follow up for further management Blood and urine cultures both growing E. coli; sensitivities reviewed IV levaquin switched to IV rocephin based on culture sensitivities Continue IV rocephin (12/17-) ID consulted PICC placed yesterday. Will need at least 1 week of IV abx. Hypertension Hx perforated ulcer confirm home meds, restart as appropriate resume home losartan, amlodipine VTE: Lovenox Code: Full Dispo: Home with HH, 1-2 days Pending IV abx setup, ID recs Time Spent Managing Pts Care (In Minutes): 45
--- NOTE | 2024-12-18 13:52 | P.CNS ---
Date of Consult: 12/18/24 reason for consult: E coli bacteremia and UTI HPI: 83-year-old female was brought to the ER today complaining of chills and subjective fever. Denied chest pain, shortness of breath, abdominal pain, nausea or vomiting, headaches, or blurred vision. Chest xray unremarkable. renal US show Marked dilatation of a right extrarenal pelvis is without significant change from the prior CT. This may be a normal variant or be secondary to a UPJ stricture. Patient has been self cathing for 2 weeks at night due not being able to empty her bladder. WBC WBC, VS stable. blood culture positive for E coli urine culture also positive for e coli. pt is on rocephin. Report tolerating abx with no issues. ROS: please see hPI Current Medications Acetaminophen (Acetaminophen 325 Mg Tablet) 650 mg PO Q4HP PRN PRN Reason: TEMP > 100' F Last Admin: 12/18/24 12:33 Dose: 650 mg Amlodipine Besylate (Amlodipine 10 Mg Tab) 10 mg PO DAILY [facility] Last Admin: 12/18/24 08:24 Dose: 10 mg Baclofen (Baclofen 10 Mg Tab) 5 mg PO BID PRN PRN Reason: spasm Enoxaparin Sodium (Enoxaparin 40 Mg/0.4 Ml) 40 mg SQ DAILY [facility] Last Admin: 12/18/24 08:34 Dose: 40 mg Hydralazine HCl (Hydralazine Hcl 20 Mg/Ml Vial) 10 mg IV Q6HP PRN PRN Reason: Goal to achieve SBP in comment Last Admin: 12/18/24 04:34 Dose: 10 mg Ceftriaxone Sodium 2,000 mg/ (Sodium Chloride) 100 mls @ 200 mls/hr IV DAILY JUAN; Protocol Last Admin: 12/18/24 08:25 Dose: 100 mls Losartan Potassium (Losartan Potassium 50 Mg Tablet) 50 mg PO DAILY [facility] Last Admin: 12/18/24 08:24 Dose: 50 mg Melatonin (Melatonin 3 Mg Tablet) 3 mg PO BEDTIME PRN PRN PRN Reason: INSOMNIA Last Admin: 12/17/24 00:03 Dose: 3 mg Mupirocin (Mupirocin Nasal 2 Appl/1 Gm Tube) 1 appl JENNIFER BID JUAN Stop: 12/22/24 09:01 Last Admin: 12/18/24 08:24 Dose: 1 appl Nutritional Formula (Ensure High Protein 237 Ml Can) 237 ml PO BID JUAN Last Admin: 12/18/24 08:25 Dose: Not Given Ondansetron HCl (Ondansetron 4 Mg/2 Ml Vial) 4 mg IV Q6HP PRN PRN Reason: NAUSEA / VOMITING - Past Medical/Surgical History Diabetic: No -: HTN -: perforated ulcer -: 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 -: repair of perforated ulcer - Family History Family History: Reviewed- Non-Contributory - Social History Smoking Status: Never smoker Alcohol use: No CD- Drugs: No Caffeine use: No Place of Residence: Home objective Temp Pulse Resp BP Pulse Ox 98.1 F 91 H 16 133/64 95 12/18/24 12:00 12/18/24 12:00 12/18/24 12:00 12/18/24 12:00 12/18/24 12:00 - Physical Exam General: Alert, In no apparent distress, Oriented x3, Cooperative HEENT: Atraumatic, Normocephalic, PERRLA Neck: Supple, 2+ Respiratory: Clear to auscultation bilaterally Cardiovascular: RRR Gastrointestinal: BS present, NT, ND Neurological: respond to questions appropriately Microbiology 12/14/24 19:13 Blood - Blood Aerobic Blood Culture - Final Escherichia Coli 12/14/24 19:13 Blood - Blood Blood Culture Gram Stain - Final 12/14/24 19:13 Blood - Blood Anaerobic Blood Culture - Final Escherichia Coli 12/14/24 19:13 Blood - Blood Gram Stain - Final 12/14/24 19:00 Blood - Blood Aerobic Blood Culture - Final Escherichia Coli 12/14/24 19:00 Blood - Blood Blood Culture Gram Stain - Final 12/14/24 19:00 Blood - Blood Anaerobic Blood Culture - Final Escherichia Coli 12/14/24 19:00 Blood - Blood Gram Stain - Final 12/14/24 18:54 Catheterized Urine [place] Count - Final 12/14/24 18:54 Catheterized Urine - Final Escherichia Coli labs: wbc 5.5, gb 11.4, plt count 184, bun 0.82, cr 0.82, albumin 3.4 assessment and planning 1. E coli bacteremia 2. UTI secondary to E coli continue rocephin for 2 weeks repeat blood culture until neg TTE pending will continue to monitor patient as needed thank you Dr Lovelace for the consult case discussed and in agreement with Dr dalal
[2024-12-18] MEDS: BACLOFEN 10 MG TAB PO PRN (23:44)
[2024-12-19] MEDS: IBUPROFEN 400 MG TAB PO ONE (01:55)
[2024-12-19 04:33] LABS: Absolute Lymphocytes (CBC) 0.7 K/uL (0.7-4.9); Hematocrit 33.3 % (36.0-45.0); Hemoglobin 11.3 g/dL (12.0-15.0); MCH 28.2 pg (27.0-35.0); MCHC 34.0 g/dL (32.0-36.0); MCV 83.1 fL (80-100); MPV 7.6 fL (7.6-11.3); Nucleated RBC Absolute Count 0.0 (0-0); Nucleated Red Blood Cells % 0.0 % (0-0); RBC Red Blood Cell Count 4.01 M/uL (3.86-4.86); White Blood Count 4.40 thou/uL (4.3-10.9)
[2024-12-19 04:48] LABS: Anion Gap 8.6 mEq/L (5.0-15.0); BUN Blood Urea Nitrogen 20.0 mg/dL (7-18); Glucose Level 106.0 mg/dL (74-106); Magnesium 1.9 mg/dL (1.6-2.4); Potassium 3.6 mEq/L (3.5-5.1)
[2024-12-19] MEDS: MAGNESIUM SULFATE 1 gm IVPB 1 GM/100 ML BAG IV ONE (08:44)
[2024-12-19] MEDS: POTASSIUM CL SA 10 MEQ TAB PO ONE (08:45)
[2024-12-19] MEDS: HYDROCODONE/APAP 5/325 MG TAB PO PRN (12:59)
--- NOTE | 2024-12-19 16:12 | P.PN ---
Subjective Date of Service: 12/19/24 Chief Complaint: UTI. Patient is complaining of headache. She was given a dose of Fioricet last night. Blood pressure readings high and fluctuating. No recorded fever. Physical Examination - Vital Signs Temperature: 98.2 F Blood Pressure: 144/90 Pulse: 97 Respirations: 16 Pulse Ox (%): 96 Assessment And Plan - Plan Physical Exam: GEN: Alert, oriented, NAD CV: Regular rate and rhythm, no edema Pulm: Nonlabored respirations on room air, clear bilaterally ABD: soft, nontender, nondistended Carias placed in ED Problem List: Fever secondary to UTI E. coli Bacteremia Urinary retention Hypertension Hx perforated ulcer Fever secondary to UTI E. coli Bacteremia Urinary retention on admission, presents with fever, chills, associated with uncontrollable generalized shaking and nausea She reports having to straight cath everyday for the last 2-4 weeks due to unable to empty her bladder Carias placed in ED; Possibly voiding trial prior to discharge vs going home with carias Would benefit from outpatient urology follow up for further management Blood and urine cultures both growing E. coli; sensitivities reviewed IV levaquin switched to IV rocephin based on culture sensitivities Continue IV rocephin (12/17-) ID consulted PICC placed yesterday. Will need at least 1 week of IV abx. Hypertension Hx perforated ulcer confirm home meds, restart as appropriate resume home losartan, amlodipine 12/19 E. coli antibiotic sensitivities reviewed with infectious disease and noted the organism is resistant to multiple oral antibiotics. At this point infectious disease Dr. Wall recommends outpatient IV antibiotic. She is slated for 1 week of IV Rocephin PICC line placed for outpatient IV Rocephin. Patient with a history of urinary retention and self catheterizes. Carias catheter is present and will be maintained. Patient informed to follow-up with her urologist regarding the urinary retention. Continue PPI Home antihypertensives resumed. Losartan dose increased from 50 mg to 100 mg daily given uncontrolled blood pressure Hydralazine IV as needed for BP spikes. Analgesics for headache ordered. DVT prophylaxis: Lovenox Advanced directive: full code
[2024-12-19 17:04] LABS: Magnesium 2.1 mg/dL (1.6-2.4)
--- NOTE | 2024-12-19 22:35 | PN ---
Subjective: The patient is lying in bed, family by the bedside, not in any acute distress. Complain s of headache previously when getting antibiotic. She gets Tylenol which helps, but does not take th e headache completely. Denies any problems with antibiotic. Objective: Vital Signs: Temperature 98, pulse 97, respirations 16, blood pressure 144/90. Lungs: Basal crackles. Heart: S1, S2. Regular. Abdomen: Soft, nontender. Bowel sounds present. Extremities: No edema. Muscle wasting noted. Laboratory Data: Shows WBC 4.4, hemoglobin 11.3, platelets 179, BUN of 20, creatinine 0.8. The yuliana ent is currently on Rocephin. Micro data shows E coli and blood cultures and urine cultures done on 12/14, repeat cultures on 12/18 are negative to date. Assessment And Plan: 1. E coli bacteremia, most likely secondary to urosepsis from E coli. The patient is getting Rocephi n. We will recommend to continue IV antibiotic as the patient's cultures are showing resistant to or al counterparts including Bactrim, Levaquin, and Unasyn. The patient does have a PICC line. 2. Anemia of chronic disease. 3. Leukocytosis has improved. 4. Headaches. Continue Tylenol. We will follow the patient as needed. NF/MODL Voice ID: [id number] Report ID: [id number]
[2024-12-20] MEDS: DIPHENHYDRAMINE 25 MG TAB/CAP PO ONE (03:17)
[2024-12-20] MEDS: ONDANSETRON 4 MG/2 ML VIAL IV PRN (03:17)
[2024-12-20 04:55] LABS: Absolute Lymphocytes (CBC) 0.7 K/uL (0.7-4.9); Hematocrit 32.5 % (36.0-45.0); Hemoglobin 10.7 g/dL (12.0-15.0); MCH 27.8 pg (27.0-35.0); MCHC 32.9 g/dL (32.0-36.0); MCV 84.6 fL (80-100); MPV 8.1 fL (7.6-11.3); Nucleated RBC Absolute Count 0.0 (0-0); Nucleated Red Blood Cells % 0.0 % (0-0); RBC Red Blood Cell Count 3.83 M/uL (3.86-4.86); White Blood Count 4.90 thou/uL (4.3-10.9)
[2024-12-20 05:04] LABS: Anion Gap 8.7 mEq/L (5.0-15.0); BUN Blood Urea Nitrogen 18.0 mg/dL (7-18); Glucose Level 125.0 mg/dL (74-106); Potassium 3.7 mEq/L (3.5-5.1)
[2024-12-20] MEDS: LOSARTAN POTASSIUM 50 MG TABLET PO SCH (08:21)
[2024-12-20 12:05] VITALS: BP 148/67; TEMP 98.3
--- NOTE | 2024-12-20 12:37 | P.DS ---
Admission Date: 12/14/24 Discharge Date: 12/20/24 Disposition: DC HOME/HOME HEALTH CARE Discharge Condition: FAIR Reason for Admission: UTI. Hospital Course: Problem List: Sepsis secondary to E. coli UTI E. coli Bacteremia Urinary retention Hypertension Hx of perforated ulcer Patient presented with fever, chills, associated with uncontrollable generalized shaking and nausea, found to have urinary tract infection. Urine culture and blood culture grew E. coli Patient has a baseline history of urinary retention and does self catheterize intermittently. Cummings catheter was placed and retained in the emergency department, and removed on discharge. Patient treated with IV Levaquin and then transition to IV Rocephin based on bacterial sensitivity. Patient seen and evaluated by infectious disease Dr. Wall. PICC line placed for prolonged IV antibiotic therapy. Patient to complete a total of 14 days of IV antibiotics. She is discharged with IV Rocephin. Patient was blood pressure was initially significantly elevated however blood pressure improved and no changes were made in her home antihypertensives. Vital Signs/Physical Exam: Temp Pulse Resp BP Pulse Ox 98.3 F 81 18 148/67 H 95 12/20/24 12:00 12/20/24 12:00 12/20/24 12:00 12/20/24 12:00 12/20/24 12:00 General: Alert, In no apparent distress, Oriented x3 HEENT: Mucous membr. moist/pink Neck: JVD not distended Respiratory: Clear to auscultation bilaterally, Normal air movement Cardiovascular: No edema, Regular rate/rhythm, Normal S1 S2, No murmurs Gastrointestinal: Normal bowel sounds, Soft and benign, Non-distended, No tenderness Musculoskeletal: No swelling Integumentary: No rashes, No cyanosis Neurological: Normal strength at 5/5 x4 extr Laboratory Data at Discharge: WBC 4.90 thou/uL (4.3-10.9) 12/20/24 04:30 Hgb 10.7 g/dL (12.0-15.0) L 12/20/24 04:30 Hct 32.5 % (36.0-45.0) L 12/20/24 04:30 Plt Count 136 thou/uL (152-406) L 12/20/24 04:30 PT 13.3 SECONDS (10-13.0) H 12/14/24 19:13 INR 1.18 12/14/24 19:13 APTT 27.1 SECONDS (27.2-37.4) L 12/14/24 19:13 Sodium 138 mEq/L (136-145) 12/20/24 04:30 Potassium 3.7 mEq/L (3.5-5.1) 12/20/24 04:30 BUN 18 mg/dL (7-18) 12/20/24 04:30 Creatinine 1.04 mg/dL (0.55-1.02) H 12/20/24 04:30 Glucose 125 mg/dL (74-106) H 12/20/24 04:30 Phosphorus 3.1 mg/dL (2.5-4.9) 12/20/24 04:30 Magnesium 1.9 mg/dL (1.6-2.4) 12/20/24 04:30 Total Bilirubin 0.5 mg/dL (0.2-1.0) 12/17/24 04:55 AST 11 U/L (15-37) L 12/17/24 04:55 ALT < 14 U/L (13-56) 12/17/24 04:55 Alkaline Phosphatase 76 U/L (45-117) 12/17/24 04:55 Home Medications: Amlodipine [Norvasc*] 10 mg PO DAILY #30 tab 06/01/13 Acetaminophen [Tylenol Extra Strength] 500 mg PO Q6HP PRN 06/30/24 Docusate [Colace Cap*] 200 mg PO DAILY PRN cap 06/30/24 Baclofen [Lioresal*] 5 mg PO BID PRN #30 tab 07/06/24 Docusate/Senna [Senokot-S*] 2 tab PO BEDTIME tab 07/06/24 Ensure High Protein 237 ml PO BID can 07/06/24 Magnesium Oxide [Mag 0X*] 400 mg PO DAILY tab 07/06/24 Losartan Potassium 50 mg .ROUTE DAILY 12/14/24 Hydrocodone 5/APAP 325 [[place] 5/325*] 1 tab PO Q6H PRN #15 tab 12/20/24 Mupirocin Calcium [Bactroban Nasal*] 1 appl JENNIFER BID #1 tube 12/20/24 New Medications: Mupirocin Calcium [Bactroban Nasal*] 1 appl JENNIFER BID #1 tube Hydrocodone 5/APAP 325 [[place] 5/325*] 1 tab PO Q6H PRN #15 tab PRN Reason: Pain Scale 5-7 (Moderate) Physician Discharge Instructions: Physician discharge instructions: Patient presented with fever, chills, associated with uncontrollable generalized shaking and nausea, found to have urinary tract infection. Urine culture and blood culture grew E. coli Patient has a baseline history of urinary retention and does self catheterize intermittently. Cummings catheter was placed and retained in the emergency department, and removed on discharge. Patient treated with IV Levaquin and then transition to IV Rocephin based on bacterial sensitivity. Patient seen and evaluated by infectious disease Dr. Wall. PICC line placed for prolonged IV antibiotic therapy. Patient to complete a total of 14 days of IV antibiotics. She is discharged with IV Rocephin. Patient was blood pressure was initially significantly elevated however blood pressure improved and no changes were made in her home antihypertensives. Medications: [place] IV Rocephin Follow up: PCP 3-5 days Please call to schedule / confirm appointments Home health and IV antibiotic arrangements have been finalized: [facility] P:[phone] F:[phone] [facility]: [id number], [place] [address] P: [phone] F: [phone] Diet: AHA Activity: Fall precautions Followup: NONE,NONE [Primary Care Provider] - Time spent managing pt's care (in minutes): 37
--- NOTE | 2024-12-20 13:16 | P.PN ---
Date of Service: 12/20/24 subjective: no concern or complaints. denied problem with abx. denied NVD, chest pain. VS stable objective Temp Pulse Resp BP Pulse Ox 98.3 F 81 18 148/67 H 95 12/20/24 12:00 12/20/24 12:00 12/20/24 12:00 12/20/24 12:00 12/20/24 12:00 - Physical Exam General: Alert, In no apparent distress, Oriented x3, Cooperative HEENT: Atraumatic, Normocephalic, PERRLA Neck: Supple, 2+ Respiratory: Clear to auscultation bilaterally Cardiovascular: RRR Gastrointestinal: BS present, NT, ND Neurological: respond to questions appropriately Microbiology 12/14/24 19:13 Blood - Blood Aerobic Blood Culture - Final Escherichia Coli 12/14/24 19:13 Blood - Blood Blood Culture Gram Stain - Final 12/14/24 19:13 Blood - Blood Anaerobic Blood Culture - Final Escherichia Coli 12/14/24 19:13 Blood - Blood Gram Stain - Final 12/14/24 19:00 Blood - Blood Aerobic Blood Culture - Final Escherichia Coli 12/14/24 19:00 Blood - Blood Blood Culture Gram Stain - Final 12/14/24 19:00 Blood - Blood Anaerobic Blood Culture - Final Escherichia Coli 12/14/24 19:00 Blood - Blood Gram Stain - Final 12/14/24 18:54 Catheterized Urine [place] Count - Final 12/14/24 18:54 Catheterized Urine - Final Escherichia Coli labs: wbc 4.9, hgb 10.7, plt count 136, bun 18, cr 1.04, albumin 3.4 assessment and planning 1. E coli bacteremia 2. UTI secondary to E coli 3. anemia of chronic disease continue rocephin for 2 weeks repeat blood culture until neg will continue to monitor patient as needed case discussed and in agreement with Dr dalal
== END 2024-12-20 13:32 | disposition home health service (06) | DRG 872 ==
LOC: ER 18:22 → ERHOLD 21:16 → 2ND 22:05
PROVIDERS: ADMIT Hospitalist; ATTEND Internal Medicine
PROC: 02HV33Z Insertion of Infusion Device into Superior Vena Cava, Percutaneous Approach (ICD-10-PCS; principal; 2024-12-17)
DX: A41.51 Sepsis due to Escherichia coli [E. coli] (principal); N39.0 Urinary tract infection, site not specified; R33.9 Retention of urine, unspecified; I10 Essential (primary) hypertension; Z79.899 Other long term (current) drug therapy; J20.9 Acute bronchitis, unspecified; D63.8 Anemia in other chronic diseases classified elsewhere; R51.9 Headache, unspecified
CPT/HCPCS: 36415; 36569; 51702; 71045; 76770; 80048; 80053; 81003; 82947; 83605; 83735; 83880; 84100; 84484; 85025; 85610; 85730; 87040; 87077; 87086; 87088; 87186; 87205; 87428; 93005; 96365; 96366; 99285; J0360; J0696; J1650; J2270; J2405; J3475; J7030; J7040